=== PATIENT | female | born 1930 | race Caucasian/White ===

== ENCOUNTER → 2016-11-12 | Outpatient (CLI) | payer OTHER, MEDICARE | LOC: LAB 09:41 | PROVIDERS: ATTEND Internal Medicine | DX: I48.91 Unspecified atrial fibrillation (principal) | CPT/HCPCS: 36415; 85610 ==

== ENCOUNTER → 2016-11-26 | Outpatient (CLI) | payer OTHER, MEDICARE | LOC: LAB 08:43 | PROVIDERS: ATTEND Internal Medicine | DX: I25.10 Atherosclerotic heart disease of native coronary artery without angina pectoris (principal) | CPT/HCPCS: 36415; 85610 ==

== ENCOUNTER → 2016-12-10 | Outpatient (CLI) | payer OTHER, MEDICARE | LOC: MMPC 09:00 | DX: R04.0 Epistaxis (principal) | CPT/HCPCS: 30901 ×2; G0463 ==

== ENCOUNTER → 2016-12-16 | Outpatient (CLI) | payer OTHER, MEDICARE ==
[2016-12-16 12:51] LABS: BASOPHILS # (AUTO) 0.03 10*3/UL; BASOPHILS % (AUTO) 0.3 % (0-1); HEMATOCRIT 46.5 % (37.0-47.0); LYMPHOCYTES # (AUTO) 0.74 10*3/uL; MEAN CORPUSCULAR HEMOGLOBIN 29.9 PG (27-31); MEAN CORPUSCULAR HGB CONC 32.3 g/dL (33-37); MEAN CORPUSCULAR VOLUME 92.6 FL (81-99); MEAN PLATELET VOLUME 10.2 FL (7.4-12.2); MONOCYTES # (AUTO) 0.64 10*3/UL (0.3-0.8); MONOCYTES % (AUTO) 6.5 % (5-15); NEUTROPHILS # (AUTO) 8.39 10*3/UL; NEUTROPHILS % (AUTO) 84.5 % (50-80); RED BLOOD COUNT 5.02 10^6/uL (4.20-5.40)
[2016-12-16 12:55] LABS: PLATELET MORPHOLOGY COMMENT NORMAL MORPHOLOGY (NORM); RBC MORPHOLOGY COMMENT NORMAL MORPHOLOGY (NORM); WBC MORPHOLOGY COMMENT NORMAL MORPHOLOGY (NORM)
[2016-12-16 13:13] LABS: BLOOD UREA NITROGEN 28 mg/dL (7-22); CALCIUM 9.2 mg/dL (8.7-10.7); CHOL/HDL RATIO 2.67 RATIO (0-4.0); HDL CHOLESTEROL 62 mg/dL (40-150); SERUM ALBUMIN 3.9 g/dL (3.5-4.8); SERUM CHOLESTEROL 166 mg/dL (120-200)
[2016-12-16 13:32] LABS: BILIRUBIN,URINE NEGATIVE (NEG); CLARITY,URINE CLEAR (CLEAR); COLOR,URINE YELLOW; GLUCOSE, URINE (UA) NEGATIVE (NEG); NITRATE,URINE NEGATIVE (NEG); OCCULT BLOOD,URINE NEGATIVE (NEG); PH,URINE 6.5 (5.0-8.5); PROTEIN,URINE NEGATIVE (NEG); URINE SAMPLE TYPE VOIDED SPECIMEN; UROBILINOGEN,URINE 0.2 mg/dL (0.2)
[2016-12-16 13:33] LABS: BACTERIA,URINE MANY; RBC,URINE 0-1 /hpf; SQUAMOUS EPITHELIAL CELL,UR RARE; WBC,URINE 0-2
== END ==
LOC: MOB LAB 11:41
DX: N18.4 Chronic kidney disease, stage 4 (severe) (principal); R58 Hemorrhage, not elsewhere classified; I66.9 Occlusion and stenosis of unspecified cerebral artery; E55.9 Vitamin D deficiency, unspecified; I48.91 Unspecified atrial fibrillation
CPT/HCPCS: 36415; 80053; 80061; 81001; 82306; 84443; 85025

== ENCOUNTER → 2016-12-30 | Outpatient (CLI) | payer OTHER, MEDICARE | LOC: MMPC 09:00 | PROVIDERS: ATTEND Physician Assistant Medical | DX: S81.811A Laceration without foreign body, right lower leg, initial encounter (principal); W22.8XXA Striking against or struck by other objects, initial encounter | CPT/HCPCS: 99213; G0463 ==

== ENCOUNTER 2017-01-03 15:00 | Emergency (ER) | payer OTHER, MEDICARE ==
[2017-01-03] MEDS ORDERED: DIPH,PERTUSS,TET(ADACEL) VAC/PF 0.5 ML (Tdap) IM ONE (15:53)
[2017-01-03 17:25] VITALS: RESP 14; TEMP 97.7
--- NOTE | 2017-01-04 00:26 | PDOC ---
Upper Ext Injury HPI - General Chief Complaint: Integumentary Stated Complaint: SKIN TEAR ON LEFT FOREARM FROM DOG Date Seen by Provider: 01/03/17 Time Seen by Provider: 15:10 Source: POSITIVE: Patient, Other (Son-in-law) Exam Limitations: POSITIVE: No limitations Nurse's Notes Reviewed & Considered: Yes - History of Present Illness Initial Comments: The patient is an 86-year-old female. She was riding in a vehicle being driven by her son-in-law. She had her small dog with her in the front seat. The dog accidentally scratched the dorsum of the patient's left proximal forearm and the patient sustained a V-shaped skin tear here. Patient has a history of polymyalgia rheumatica and has been on prednisone for several years, which has caused her skin to be thin and friable. She denies any other injuries. No sensory, motor or vascular deficits. Have you received a tetanus shot in the past 10 years?: Unknown Body Location Affected: REPORTS: Upper Extremity (L) Timing: REPORTS: Abrupt Duration: 1/2 hour Severity: Moderate Quality: REPORTS: "Pain" (Mild discomfort at site of injury) Context of Injury: REPORTS: Incision (Skin tear) Modifying Factors: DENIES: Nothing Exacerbates, Walking, Movement, Rest, Ice, Nothing Relieves, Other Associated Symptoms: REPORTS: Arm (L) (Skin tear left forearm). DENIES: Arm (R) , Tingling Distally, Numbness Distally, Loss of Feeling, Loss of Power Any Prior Injuries Related to Current Complaint?: No - Patient Home Medications Home Medications: Home Medications Prednisone 1 tab PO QD #30 tab 12/22/14 Aspirin [Aspir 81] 81 mg PO DAILY tab 12/10/16 Fluticasone Propionate [Flonase Allergy Relief] 1 spr BIJAN QD #1 spr 12/10/16 Gabapentin 2 cap PO QHS #60 cap 12/10/16 Metoprolol Tartrate [Lopressor] 0.5 tab PO BID #30 tab 12/10/16 Ranitidine HCl [Zantac] 2 tab PO QHS #60 tab 12/10/16 Sennosides [Senna] 2 tab PO QHS #60 tab 12/10/16 Cholecalciferol (Vitamin D3) [Vitamin D3] 1 tab PO QD #30 tab 12/16/16 Clopidogrel Bisulfate [Plavix] 1 tab PO QD #30 tab 12/16/16 Cyanocobalamin (Vitamin B-12) [Vitamin B-12] 1 tab PO QD #30 tab 12/16/16 Furosemide 1 tab PO QD #30 tab 12/16/16 Mirtazapine 1 tab PO QHS #30 tab 12/16/16 Multivitamin [Daily [place]] 1 tab PO QD #30 tab 12/16/16 [place]-3 Fatty Acids/Fish Oil [[place] 3 1,000 Mg Softgel] 1 cap PO BID #60 cap Vit C/Vit E/Lutein/Min/[place]-3 [Ocuvite Softgel] 1 cap PO QD #30 cap 12/16/16 - Patient Allergies Allergies/Adverse Reactions: Allergies Allergy/AdvReac Type Severity Reaction Status Date / Time clindamycin Allergy Intermediate diarrhea Verified 01/03/17 16:02 and vomiting Penicillins Allergy Mild rash Verified 01/03/17 16:02 Sulfa (Sulfonamide Allergy Mild rash Verified 01/03/17 16:02 Antibiotics) alendronate sodium Allergy NOT Verified 01/03/17 16:02 APPLICABLE bupropion Allergy NOT Verified 01/03/17 16:02 APPLICABLE calcitriol Allergy NOT Verified 01/03/17 16:02 APPLICABLE fentanyl Allergy NOT Verified 01/03/17 16:02 APPLICABLE gemfibrozil Allergy NOT Verified 01/03/17 16:02 APPLICABLE loratadine Allergy NOT Verified 01/03/17 16:02 APPLICABLE methocarbamol Allergy NOT Verified 01/03/17 16:02 APPLICABLE sertraline Allergy NOT Verified 01/03/17 16:02 APPLICABLE simvastatin Allergy NOT Verified 01/03/17 16:02 APPLICABLE Past Medical History - heen HEENT History: Macular Degeneration, Cataracts, Other (please comment) Additional HEENT History: CATARACT REMOVAL BILAT Cardiovascular History: Hypertension, Arrhythmia, Pacemaker, Other (please comment) Additional Cardiovasular History: A FIB/FLUTTER, MITRAL VALVE INSUFFICIENCY WITH REPAIR Respiratory History: Denies History Gastrointestinal History: GERD Genitourinary History: Denies History Endocrine History: Denies History Musculoskeletal History: Arthritis, Osteoporosis, Other (please comment) Prosthesis or Implant: Yes (PACEMAKER, RIGHT HIP REPLACEMENT HARDWARE) Additional Musculoskeletal History: MYALGIAS Neurological History: Other (please comment) Additional Neurological History: CHRONIC 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 Blood Disorders: Denies History Psychiatric History: Denies History History of Sexually Transmitted Diseases: No Female Reproductive History: Other (please comment) Additional Female Reproductive History: TUBAL LIGATION Cancer History: Skin, Other (please comment) In Past Year Been Physically Harmed or Verbally Threatened: No (PER PATIENT) History of MDRO: No History of Other Communicable Diseases: No Tobacco Use: Never Smoker Alcohol Use: Occasionally Type of alcohol normally used: Beer Substance Use Type: None Previous Surgical History: Yes Type / Date of Surgery: TUBAL LIGATION, RIGHT HIP REPLACEMENT, MITRAL VALVE REPAIR, PACEMAKER LEFT CHEST, BILATERAL CATARACT REMOVAL, BILATERAL ROTATOR CUFF REPAIRS Anesthesia Reactions: No Malignant Hyperthermia: No Family History of Malignant Hyperthermia: No Significant Family History: No pertinent family hx Past Medical History Reviewed: Reviewed - No Changes ROS - Limitations ROS Limitations: No Limitations Constitution: REPORTS: Denies Symptoms Cardiovascular: REPORTS: Denies Cardiac Symptoms Respiratory: REPORTS: Denies Resp Symptoms Neurological: REPORTS: Denies Neuro Symptoms Gastrointestinal: REPORTS: Denies GI Symptoms Endocrine: REPORTS: Denies Symptoms Musculoskeletal: REPORTS: Denies MS Symptoms Genitourinary: REPORTS: Denies Symptoms Eyes: REPORTS: Denies Symptoms ENT: REPORTS: Denies Symptoms Skin: REPORTS: Other (Skin tear, dorsum of proximal proximal portion of left forearm) Lympathic: REPORTS: Denies Lympathic Symptoms Immunologic: POSITIVE: Denies Symptoms Psychiatric: POSITIVE: Denies Psych Symptoms Upper Ext Injury Exam - General Appearance General Appearance: POSITIVE: Alert, Cooperative, No Acute Distress. NEGATIVE: No Evidence of Trauma (Skin tear left forearm; see diagram) - Extremities Upper Extremity: POSITIVE: Normal Color, Normal ROM, Normal Temperature, Soft Tissue Tenderness, See Diagram. NEGATIVE: Bony Tenderness, Swelling, Ecchymosis , Deformity, Skin Intact (Skin tear left forearm as above; see diagram), Erythema, Limited ROM, Pulse Deficit, Snuff Box Position Tender, Axial Thumb Load Pain Neurovascular/Tendon: POSITIVE: Sensation Normal, Motor Normal, No Vascular Compromise Skin: POSITIVE: See Diagram - Respiratory / CVS Respiratory / CVS: POSITIVE: Chest Non Tender, No Ecchymosis, Breath Sounds Normal, No Respiratory Distress, Heart Sounds Normal, Regular Rate/Rhythm Peripheral Pulses: Radial (R): 2+, Radial (L): 2+ Procedures - Additional Procedures Additional Procedures: Other (Wound was gently cleansed with normal saline. The margins of the skin tear were teased together with moistened Q-tips and then stabilized with Steri-Strips.) Images - Upper Extremities Upper Extremities: 1 - 5 cm V-shaped skin tear. Upper Ext Injury Progress - Patient's Progress Pain Medication Addressed: POSITIVE: Yes (Recommended Tylenol) School/Work Release Addressed: POSITIVE: Not Applicable Re-Examine Time: 15:47 Re-Examine Comment: After cleansing with normal saline, the margins of the skin tear were approximated by teasing the margins together with moistened Q-tips. The margins were then stabilized with quarter inch and half inch Steri-Strips. Sterile dressing was then placed. Status: POSITIVE: Improved, Re-Examined - Consult Counseled: POSITIVE: Patient, Family (Son-in-law), RE: DX, RE: Need for F/U Patient Care Time - Estimated PCT Patient Care Time (In Minutes): 30 Vital Signs - VS Reviewed Vital Signs Reviewed: Yes Discharge Clinical Impression: Skin tear Discharge Disposition: Discharged to Home Condition: Stable Patient Instructions Given at Discharge: Skin Tear (ED) Additional Instructions: Keep Steri-Strips on for at least 10 days. Change dressing daily. Return any time at first sign of infection, or if condition worsens in any way. Follow Up With: ERIC QUICK [Primary Care Provider] - (Instructions as above. Return anytime at first sign of infection, or if condition worsens in any way. Follow-up with your primary care provider.)
== END 2017-01-03 16:15 | disposition home or self-care (01) ==
LOC: ER 15:00
DX: S51.812A Laceration without foreign body of left forearm, initial encounter (principal); I48.91 Unspecified atrial fibrillation; I10 Essential (primary) hypertension; Z95.0 Presence of cardiac pacemaker; W54.1XXA Struck by dog, initial encounter
CPT/HCPCS: 96372; 99282

== ENCOUNTER 2017-01-10 15:22 | Emergency (ER) | payer OTHER, MEDICARE ==
[2017-01-10] MEDS ORDERED: LET SOLUTION 40MG/0.5MG/5MG/ML - 3 ML TOPICAL ONE (15:28)
--- NOTE | 2017-01-10 15:33 | PDOC ---
Skin Rash/Insect/Abscess HPI - General Chief Complaint: Integumentary Stated Complaint: skin tear Date Seen by Provider: 01/10/17 Time Seen by Provider: 15:28 Source: POSITIVE: Patient, Other (Her children) Exam Limitations: POSITIVE: No limitations Nurse's Notes Reviewed & Considered: Yes - History of Present Illness Initial Comments: Patient was in her normal state of health when she hit her right forearm on the handle of her walker. This resulted in an evulsion laceration to the scan of the posterior lateral right forearm. She denies any other symptoms. Have you received a tetanus shot in the past 10 years?: Unknown Body Location Affected: REPORTS: Upper Extremity (R) Timing: REPORTS: Abrupt Duration: 1/2 hour Severity: Mild Quality: REPORTS: "Pain" Identified Causes: REPORTS: Yes When Exposed: REPORTS: Just Prior to Sx Onset Where Exposed: REPORTS: Home Suspected Etiology: REPORTS: Other (Evulsion laceration from hitting her arm on the handle of her walker.) Similar Symptoms Previously: Yes (injury to the ipsilateral side from similar circumstances a week ago.) Recent Care Received: REPORTS: Denies Any Prior Injuries Related to Current Complaint?: No - Patient Home Medications Home Medications: Home Medications Prednisone 1 tab PO QD #30 tab 12/22/14 Aspirin [Aspir 81] 81 mg PO DAILY tab 12/10/16 Fluticasone Propionate [Flonase Allergy Relief] 1 spr BIJAN QD PRN #1 spr Gabapentin 2 cap PO QHS #60 cap 12/10/16 Metoprolol Tartrate [Lopressor] 0.5 tab PO BID #30 tab 12/10/16 Ranitidine HCl [Zantac] 2 tab PO QHS #60 tab 12/10/16 Sennosides [Senna] 2 tab PO QHS #60 tab 12/10/16 Cholecalciferol (Vitamin D3) [Vitamin D3] 1 tab PO QD #30 tab 12/16/16 Clopidogrel Bisulfate [Plavix] 1 tab PO QD #30 tab 12/16/16 Cyanocobalamin (Vitamin B-12) [Vitamin B-12] 1 tab PO QD #30 tab 12/16/16 Furosemide 1 tab PO QD #30 tab 12/16/16 Mirtazapine 1 tab PO QHS #30 tab 12/16/16 Multivitamin [Daily [place]] 1 tab PO QD #30 tab 12/16/16 [place]-3 Fatty Acids/Fish Oil [[place] 3 1,000 Mg Softgel] 1 cap PO BID #60 cap Vit C/Vit E/Lutein/Min/[place]-3 [Ocuvite Softgel] 1 cap PO QD #30 cap 12/16/16 - Patient Allergies Allergies/Adverse Reactions: Allergies Allergy/AdvReac Type Severity Reaction Status Date / Time clindamycin Allergy Intermediate diarrhea Verified 01/10/17 15:28 and vomiting Penicillins Allergy Mild rash Verified 01/10/17 15:28 Sulfa (Sulfonamide Allergy Mild rash Verified 01/10/17 15:28 Antibiotics) alendronate sodium Allergy NOT Verified 01/10/17 15:28 APPLICABLE bupropion Allergy NOT Verified 01/10/17 15:28 APPLICABLE calcitriol Allergy NOT Verified 01/10/17 15:28 APPLICABLE fentanyl Allergy NOT Verified 01/10/17 15:28 APPLICABLE gemfibrozil Allergy NOT Verified 01/10/17 15:28 APPLICABLE loratadine Allergy NOT Verified 01/10/17 15:28 APPLICABLE methocarbamol Allergy NOT Verified 01/10/17 15:28 APPLICABLE sertraline Allergy NOT Verified 01/03/17 16:02 APPLICABLE simvastatin Allergy NOT Verified 01/03/17 16:02 APPLICABLE Past Medical History - heen HEENT History: Macular Degeneration, Cataracts, Other (please comment) Additional HEENT History: CATARACT REMOVAL BILAT Cardiovascular History: Hypertension, Arrhythmia, Pacemaker, Other (please comment) Additional Cardiovasular History: A FIB/FLUTTER, MITRAL VALVE INSUFFICIENCY WITH REPAIR Respiratory History: Denies History Gastrointestinal History: GERD Genitourinary History: Denies History Endocrine History: Denies History Musculoskeletal History: Arthritis, Osteoporosis, Other (please comment) Prosthesis or Implant: Yes (PACEMAKER, RIGHT HIP REPLACEMENT HARDWARE) Additional Musculoskeletal History: MYALGIAS Neurological History: Other (please comment) Additional Neurological History: CHRONIC 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 Blood Disorders: Denies History Psychiatric History: Denies History History of Sexually Transmitted Diseases: No Cancer History: Skin, Other (please comment) History of MDRO: No History of Other Communicable Diseases: No Alcohol Use: Occasionally Substance Use Type: None Previous Surgical History: Yes Type / Date of Surgery: TUBAL LIGATION, RIGHT HIP REPLACEMENT, MITRAL VALVE REPAIR, PACEMAKER LEFT CHEST, BILATERAL CATARACT REMOVAL, BILATERAL ROTATOR CUFF REPAIRS Anesthesia Reactions: No Malignant Hyperthermia: No Significant Family History: No pertinent family hx ROS - Limitations ROS Limitations: No Limitations Constitution: REPORTS: Denies Symptoms Cardiovascular: REPORTS: Denies Cardiac Symptoms Respiratory: REPORTS: Denies Resp Symptoms Neurological: REPORTS: Denies Neuro Symptoms Gastrointestinal: REPORTS: Denies GI Symptoms Endocrine: REPORTS: Denies Symptoms Musculoskeletal: REPORTS: Denies MS Symptoms Genitourinary: REPORTS: Denies Symptoms Eyes: REPORTS: Denies Symptoms ENT: REPORTS: Denies Symptoms Skin: REPORTS: Other (Evulsion laceration right posterior lateral forearm) Lympathic: REPORTS: Denies Lympathic Symptoms Immunologic: POSITIVE: Denies Symptoms Psychiatric: POSITIVE: Denies Psych Symptoms Skin Rash/Insect/Abscess Exam - General Appearance General Appearance: REPORTS: Alert, Cooperative, No Acute Distress - Skin Skin: REPORTS: Warm, Dry, Normal Color, Other (Avulsion laceration posterior lateral right forearm. This measures 7 cm) Skin Location: REPORTS: Extremities (Right posterior lateral forearm) Skin Character: REPORTS: Other (thin fragile skin of old age) Skin Symptoms: REPORTS: Warmth - Extremities Extremity: Non-Tender: (All Extremities), Normal ROM: (All Extremities), Normal Inspection: (All Extremities) Procedures - Laceration/Wound Repair Did patient have a laceration repair: Yes Site of Laceration/Wound: Right posterior lateral forearm proximal Wound Length (cm): 7 Wound's Depth, Shape: Superficial Time of Suture Placement:: 15:34 Local Anesthesia Used - Indicate Amt Used in Comment: Other: Yes (LET solution) Wound Explored: Clean Wound Debrided: Minimal Wound Repaired With: Steri-strips Drain Placement: No Sterile Dressing Applied?: Yes Splint Applied?: No Sling Applied?: No Procedure Note:: After obtaining informed verbal consent, wound was anesthetized using LAT solution. Normal saline was used to irrigate the wound. This was patted dry, Mastisol and Steri-Strips applied, sterile bandage applied. Skin Rash/Abscess Progress - Patient's Progress Re-Examine Time:: 16:21 Status: POSITIVE: Improved MDM / ED Course: Patient was Evaluated. Her wound was anesthetized using L ET solution, then irrigated with normal saline, Mastisol and Steri-Strips applied. Dressing was placed over her wound and she is being discharged home in improved condition Assessment: Evulsion laceration, right posterior lateral forearm. Plan: Discharge home. - Consult Counseled: POSITIVE: Patient, Family, RE: DX, RE: Need for F/U Patient Care Time - Estimated PCT Patient Care Time (In Minutes): 15 Vital Signs - Recent Vital Signs Vital Signs: Vital Signs (Last 8 hours) Temp Pulse Resp BP Pulse Ox 01/10/17 15:23 97.3 F 85 20 146/66 96 - VS Reviewed Vital Signs Reviewed: Yes Discharge Clinical Impression: Skin tear of right forearm without complication Discharge Disposition: Discharged to Home Condition: Good Patient Instructions Given at Discharge: Skin Tear (ED)
[2017-01-10 15:45] VITALS: RESP 20; TEMP 97.3
== END 2017-01-10 16:29 | disposition home or self-care (01) ==
LOC: ER 15:22
DX: S51.811A Laceration without foreign body of right forearm, initial encounter (principal); I48.91 Unspecified atrial fibrillation; Z95.0 Presence of cardiac pacemaker; Z79.82 Long term (current) use of aspirin; W22.8XXA Striking against or struck by other objects, initial encounter
CPT/HCPCS: 99282

== ENCOUNTER → 2017-01-14 | Outpatient (CLI) | payer OTHER, MEDICARE | LOC: MMPC 11:11 | PROVIDERS: ATTEND Physician Assistant | DX: Z51.89 Encounter for other specified aftercare (principal) | CPT/HCPCS: 99212; G0463 ==

== ENCOUNTER → 2017-01-21 | Outpatient (CLI) | payer OTHER, MEDICARE | LOC: MMPC 11:11 | DX: I48.91 Unspecified atrial fibrillation (principal); N18.4 Chronic kidney disease, stage 4 (severe); E55.9 Vitamin D deficiency, unspecified; I66.9 Occlusion and stenosis of unspecified cerebral artery; K21.9 Gastro-esophageal reflux disease without esophagitis; M35.3 Polymyalgia rheumatica | CPT/HCPCS: 99212; G0463 ==

== ENCOUNTER 2017-05-17 09:06 | Inpatient (IN) ==
[2017-05-17] MEDS ORDERED: NORMAL SALINE 10 ML SYRINGE FLUSH IVP PRN (09:38)
--- NOTE | 2017-05-17 09:51 | EKG ---
[address] [address] Measurements Intervals [place] Rate: 63 P: SC: 0 QRS: 106 QRSD: 147 T: -28 QT: 442 QTc: 449 Interpretive Statements ATRIAL [id number] RIGHT BUNDLE BRANCH BLOCK T-WAVE ABNORMALITY, CONSIDER ANTERIOR AND INFERIOR ISCHEMIA No previous ECG available for comparison Electronically Signed On 05-17-17 17:55:15 MST by Robert Hogan [email or web address]
[2017-05-17 10:19] LABS: Hematocrit [HCT] 35.1 % (37.0-47.0); Hemoglobin [HGB] 11.7 g/dL (12.0-16.0); RED BLOOD COUNT 3.75 10^6/uL (4.20-5.40)
[2017-05-17 10:20] LABS: MEAN CORPUSCULAR HEMOGLOBIN 31.3 PG (27-31); MEAN CORPUSCULAR HGB CONC 33.5 g/dL (33-37); MEAN CORPUSCULAR VOLUME 94 FL (81-99); MEAN PLATELET VOLUME 7.6 FL (7.4-12.2)
[2017-05-17 10:21] LABS: BASOPHILS # (AUTO) 0.04 10*3/UL; BASOPHILS % (AUTO) 0.4 % (0-1); EOSINOPHILS # (AUTO) 0.33 10*3/UL; EOSINOPHILS % (AUTO) 3.7 % (0-8); LYMPHOCYTES # (AUTO) 1.09 10*3/uL; MONOCYTES # (AUTO) 0.67 10*3/UL (0.3-0.8); MONOCYTES % (AUTO) 7.6 % (5-15); NEUTROPHILS # (AUTO) 6.75 10*3/UL; PLATELET MORPHOLOGY COMMENT NORMAL MORPHOLOGY (NORM); RBC MORPHOLOGY COMMENT NORMAL MORPHOLOGY (NORM); WBC MORPHOLOGY COMMENT NORMAL MORPHOLOGY (NORM)
[2017-05-17 10:26] LABS: BLOOD UREA NITROGEN 30 mg/dL (7-22); BUN/CREATININE RATIO 21.42 (6-20); SERUM ALBUMIN 3.2 g/dL (3.5-4.8)
--- NOTE | 2017-05-17 11:13 | CONSULT ---
Consult Note - Consult Consult Date: 05/17/17 Reason for Consult: PreOp Consulation : General Surgery Requesting Physician: Dr. Campuzano Primary Care Provider: NONE NONE - History of Present Illness History of Present Illness: This is a-year-old female who started having hematoma in the lower extremity on May 08. Patient is taking Plavix and aspirin a day. Apparently she has atrial fibrillation and had a I device to catch blood clots coming out of the heart place. Patient has been on warfarin up to approximately 2 months ago. Patient states that she started having a hematoma after bumping her leg had a handicap bathroom and a motel. She's been getting this treated by physical therapy. Past Medical History Tobacco Use: Never Smoker In the Past 12 Months, Have Used or Abuse Any of the Following Substance: None Medication / Allergies Home Medications: Home Medications Medication Instructions Recorded Confirmed Type Prednisone 1 tab PO QD #30 tab 12/22/14 05/17/17 History Aspirin [Aspir 81] 81 mg PO DAILY tab 12/10/16 05/17/17 History Fluticasone Propionate [Flonase 1 spr BIJAN QD PRN #1 spr 12/10/16 05/17/17 History Allergy Relief] Ranitidine HCl [Zantac] 2 tab PO QHS #60 tab 12/10/16 01/10/17 History Sennosides [Senna] 2 tab PO QHS #60 tab 12/10/16 05/17/17 History Cholecalciferol (Vitamin D3) 1 tab PO QD #30 tab 12/16/16 05/17/17 Rx [Vitamin D3] Clopidogrel Bisulfate [Plavix] 1 tab PO QD #30 tab 12/16/16 05/17/17 Rx Cyanocobalamin (Vitamin B-12) 1 tab PO QD #30 tab 12/16/16 05/17/17 Rx [Vitamin B-12] Furosemide 1 tab PO QD #30 tab 12/16/16 05/17/17 Rx Mirtazapine 1 tab PO QHS #30 tab 12/16/16 01/10/17 Clinic Multivitamin [Daily [place]] 1 tab PO QD #30 tab 12/16/16 05/17/17 Rx [place]-3 Fatty Acids/Fish Oil 1 cap PO BID #60 cap 12/16/16 05/17/17 Rx [[place] 3 1,000 Mg Softgel] Vit C/Vit E/Lutein/Min/[place]-3 1 cap PO QD #30 cap 12/16/16 05/17/17 Rx [Ocuvite Softgel] Mirtazapine 1 tab PO QHS #90 tab 02/22/17 05/17/17 Clinic Ranitidine HCl [Zantac] 2 tab PO QHS #180 tab 02/22/17 05/17/17 Clinic gabapentin 100 mg capsule 100 mg PO QHS #60 cap 03/10/17 05/17/17 Rx metoprolol tartrate 25 mg tablet 12.5 mg PO BID #30 tab 05/05/17 05/17/17 Rx Allergies/Adverse Reactions: Allergies 3 Allergy/AdvReac Type Severity Reaction Status Date / Time clindamycin Allergy Intermediate diarrhea Verified 05/17/17 09:21 and vomiting Penicillins Allergy Mild rash Verified 05/17/17 09:21 Sulfa (Sulfonamide Allergy Mild rash Verified 05/17/17 09:21 Antibiotics) alendronate sodium Allergy NOT Verified 05/17/17 09:21 APPLICABLE bupropion Allergy NOT Verified 05/17/17 09:21 APPLICABLE calcitriol Allergy NOT Verified 05/17/17 09:21 APPLICABLE fentanyl Allergy NOT Verified 05/17/17 09:21 APPLICABLE gemfibrozil Allergy NOT Verified 05/17/17 09:21 APPLICABLE loratadine Allergy NOT Verified 05/17/17 09:21 APPLICABLE methocarbamol Allergy NOT Verified 05/17/17 09:21 APPLICABLE sertraline Allergy NOT Verified 05/17/17 09:21 APPLICABLE simvastatin Allergy NOT Verified 05/17/17 09:21 APPLICABLE Results - Labs CBC and BMP: 05/17/17 10:07 05/17/17 10:07 Exam - Vitals Vital Signs: Vital Signs Temperature 97.2 F Pulse Rate [Pulse Oximeter 75 Left] Respiratory Rate 16 Blood Pressure [Left Arm] 126/63 Pulse Ox 95 Oxygen Delivery Method Room Air Height 5 ft 2 in Weight 100 lb - Extremities Additional Extremities Exam Details: Patient has ecchymosis from her knee down to her ankle on the left side she has a large posterior calf hematoma that is proximally 20 cm in greatest diameter. This is raising the skin from the subcutaneous tissue. There is blottable fluid underneath the skin. I cannot tell whether the skin is necrosis to are not secondary to the bruising.. Assessment and Plan - Patient Problems (1) Hematoma Current Visit: No Status: Acute Code(s): T14.8XXA - Other injury of unspecified body region, initial encounter - Assessment / Plan Additional Assessment/Plan Details: I think the patient needs to have evacuation of this hematoma. There is significant risk of having skin necrosis. If the whole area necrosis patient may need skin grafts. I do not think we can wait the full 7 days for patient be off the Plavix. Risk and benefits of procedure were explained to the family they understand this.
[2017-05-17] MEDS ORDERED: Sodium Chloride 0.9% 1,000 ML PRIMARY IV SCH (11:51)
[2017-05-17] MEDS ORDERED: DOCUSATE 100 MG CAPSULE PO PRN (11:51)
[2017-05-17] MEDS ORDERED: LIDOCAINE W/ SODIUM BICARB 0.5 ML SYR SUBD PRN (11:51)
[2017-05-17] MEDS ORDERED: CALCIUM CARBONATE 500 MG (TUMS) CHEWABLE TABLET PO PRN (11:51)
[2017-05-17] MEDS ORDERED: Lactated Ringers 1,000 ML PRIMARY IV ONE (12:06)
[2017-05-17] MEDS ORDERED: PROPOFOL 10 MG/1 ML (200 MG/20 ML) VIAL IV ONE (13:09)
[2017-05-17] MEDS ORDERED: MIDAZOLAM 5 MG/1 ML ONE (13:09)
[2017-05-17] MEDS ORDERED: Sodium Chloride 0.9% vial 10 ML ONE (13:11)
[2017-05-17] MEDS ORDERED: LIDOCAINE HCL 1%/EPI 1:100,000 - 20 ML VIAL ONE (13:13)
--- NOTE | 2017-05-17 14:18 | CRNA.PROGR ---
Anesthesia Time - - Start date: 05/17/17 End date: 05/17/17 - Procedure/Recovery Time Anesthesia : Time In: 13:13 Anesthesia : Time Out: 13:59 Anesthesia : Total Time: 46 - Total Anesthesia Time Total Anesthesia Time (minutes): 46 - Other Weight: 45.359 kg Height: 5 ft 2 in Body Mass Index (BMI): 18.3 Physical Status: P3 (Age 86, Afib,) Anesthesia Type: MAC
--- NOTE | 2017-05-17 14:19 | CRNA.PROGR ---
Post Anesthesia Phase II - Post Anesthesia Phase II Patient Stable and Discharged To: Phase II Care Assumed By Surgeon: Oneil Logan MD Temperature: 98.9 F Pulse Rate: 63 Respiratory Rate: 20 Blood Pressure: 148/66 Pulse Ox: 98 Total Sasha Score at Discharge: 9 Post Anesthesia Discharge Criteria Met: Yes
[2017-05-17] MEDS: ACETAMINOPHEN 325 MG TABLET PO PRN ×2 (15:00→23:00)
--- NOTE | 2017-05-17 15:01 | GEN.OPNOTE ---
Operative Note Surgery Date: 05/17/17 Preoperative Diagnosis: Hematoma of the right posterior leg Postoperative Diagnosis: Large hematoma measuring 16 x 8 cm of the posterior aspect of the right lower leg with skin necrosis Procedure: Excision of necrotic skin 16 x 8 cm and evacuation of a hematoma Surgeon: Andrés Logan MD Anesthesia Provider: Cookie Blair CRNA Anesthesia Type: MAC Estimated Blood Loss (mL): 0 Fluids: LR please see anesthesia notes Indications: Patient is a large hematoma the posterior aspect of the right leg. The area of involvement measures 16 x 8 cm Findings: Skin necrosis 16 x 8 cm Operative Summary: Patient is brought in operative room. Placed in posterior position given IV sedation. Patient was then positioned left lateral decubitus. Timeout was done per protocol. Prepped draped sterile fashion. Patient had no airway then injected local anesthetic surges debridement of necrotic tissue this measures 16 x 8 cm I evacuated the hematoma underneath it. I could not tell whether this is superficial are full-thickness injury. This will be determined at a later date. The wound was covered with moistened gauze Curlex and then call band. Patient Problems - Patient Problem List (1) Hematoma Current Visit: No Status: Acute Code(s): T14.8XXA - Other injury of unspecified body region, initial encounter Category: Medical Procedure Codes - Surgical Procedures Secondary Surgical Procedure: Other CPT Code(s) (79823)
--- NOTE | 2017-05-17 17:07 | PDOC ---
HPI - History of Present Illness Date of Service: 05/17/17 Time of Service: 17:00 Chief Complaint: Hematomas and legs, right calf in particular large History of Present Illness: This a very pleasant 86-year-old female with underlying atrial fibrillation, history of TIAs, hypertension, and friable easy bruising scan with multiple episodes of hematomas on Coumadin. Back in September of this year, the patient had an atrial appendage device placed to help prevent atrial clots in the setting of her atrial fibrillation. This was to get her off of Coumadin to hopefully help prevent hematomas. Unfortunately as part of the device regimen, the patient had to remain on Plavix for about 3 months. Her bruises and she settled down after being placed on Plavix but recently have gotten significantly worse. She has had multiple hematomas that required evacuation and skin grafting per the patient's daughter I am told. She's not had any of those problems and she's been here but over the last 3 days she's developed significant hematomas and it started leaking out of the right calf. The patient denies having any significant pain with this but she came in for evaluation and it appeared that it could be significantly damaging underlying tissues. Dr. Logan was called and he took the patient to the operating room to evacuate the hematoma. It sounds like the hematoma was fairly large in my discussion with surgery. The patient was actually only specific on Plavix for 3 months but apparently her cardiology appointment got delayed so she remained on it a little longer than what was expected. She is having some pain but it is been controlled thus far with Tylenol. She is also on an aspirin. She is not had any prior cardiac events. Incidentally, she is also on prednisone and is tapered from 20 mg sent to 5 mg daily for polymyalgia rheumatica. She has not been hypotensive in the setting of surgery today. She was in danger of skin necrosis which is why she went to the operating room today. The patient stated to me that she felt overall that her hematoma started because her Yorkie was rubbing up against her legs. Past Medical History Medical History: 1. Polymyalgia rheumatica. 2. Atrial fibrillation. 3. Multiple hematomas on Coumadin therapy and now on Plavix therapy. These have also been treated by physical therapy in the past. 4. Hypertension Surgical History: 1. Multiple skin grafts related to hematomas. 2. Watchman procedure with atrial appendage device. 3. Pacemaker placement Pertinent Family History: Mother and father both passed on in their 90s related to heart disease and stroke issues Past Social History: Does not smoke or drink. Lives with her daughter and son- in-law here in [place], [place]. Had 3 children. Tobacco Use: Never Smoker In the Past 12 Months, Have Used or Abuse Any of the Following Substance: None Alcohol Use: None Medication / Allergies Home Medications: Home Medications Medication Instructions Recorded Confirmed Type Prednisone 1 tab PO QD #30 tab 12/22/14 05/17/17 History Aspirin [Aspir 81] 81 mg PO DAILY tab 12/10/16 05/17/17 History Fluticasone Propionate [Flonase 1 spr BIJAN QD PRN #1 spr 12/10/16 05/17/17 History Allergy Relief] Ranitidine HCl [Zantac] 2 tab PO QHS #60 tab 12/10/16 01/10/17 History Sennosides [Senna] 2 tab PO QHS #60 tab 12/10/16 05/17/17 History Cholecalciferol (Vitamin D3) 1 tab PO QD #30 tab 12/16/16 05/17/17 Rx [Vitamin D3] Clopidogrel Bisulfate [Plavix] 1 tab PO QD #30 tab 12/16/16 05/17/17 Rx Cyanocobalamin (Vitamin B-12) 1 tab PO QD #30 tab 12/16/16 05/17/17 Rx [Vitamin B-12] Furosemide 1 tab PO QD #30 tab 12/16/16 05/17/17 Rx Mirtazapine 1 tab PO QHS #30 tab 12/16/16 01/10/17 Clinic Multivitamin [Daily Lawrence] 1 tab PO QD #30 tab 12/16/16 05/17/17 Rx Cannon-3 Fatty Acids/Fish Oil 1 cap PO BID #60 cap 12/16/16 05/17/17 Rx [Cannon 3 1,000 Mg Softgel] Vit C/Vit E/Lutein/Min/Cannon-3 1 cap PO QD #30 cap 12/16/16 05/17/17 Rx [Ocuvite Softgel] Mirtazapine 1 tab PO QHS #90 tab 02/22/17 05/17/17 Clinic Ranitidine HCl [Zantac] 2 tab PO QHS #180 tab 02/22/17 05/17/17 Clinic gabapentin 100 mg capsule 100 mg PO QHS #60 cap 03/10/17 05/17/17 Rx metoprolol tartrate 25 mg tablet 12.5 mg PO BID #30 tab 05/05/17 05/17/17 Rx Allergies/Adverse Reactions: Allergies 3 Allergy/AdvReac Type Severity Reaction Status Date / Time cephalexin [From Keflex] Allergy Intermediate ITCHING Verified 05/17/17 11:43 clindamycin Allergy Intermediate diarrhea Verified 05/17/17 09:21 and vomiting Penicillins Allergy Mild rash Verified 05/17/17 09:21 Sulfa (Sulfonamide Allergy Mild rash Verified 05/17/17 09:21 Antibiotics) alendronate sodium Allergy NOT Verified 05/17/17 09:21 APPLICABLE bupropion Allergy NOT Verified 05/17/17 09:21 APPLICABLE calcitriol Allergy NOT Verified 05/17/17 09:21 APPLICABLE fentanyl Allergy NOT Verified 05/17/17 09:21 APPLICABLE gemfibrozil Allergy NOT Verified 05/17/17 09:21 APPLICABLE loratadine Allergy NOT Verified 05/17/17 09:21 APPLICABLE methocarbamol Allergy NOT Verified 05/17/17 09:21 APPLICABLE sertraline Allergy NOT Verified 05/17/17 09:21 APPLICABLE simvastatin Allergy NOT Verified 05/17/17 09:21 APPLICABLE Review of Systems - Review of Systems All Systems: Reviewed & No Additional Complaints Except as Stated (I did a 12 point review systems and it was negative other than that discussed in the history of present illness and that noted below.) - Constitutional Constitutional: REPORTS: Weight Loss (About 25 pounds weight loss over the past year. Poor appetite.) - Cardiovascular Cardiovascular: REPORTS: Negative System Review - Gastrointestinal Gastrointestinal / Abdominal: REPORTS: Negative System Review - Genitourinary Genitourinary: REPORTS: Negative System Review - Hematlogic / Lymphatic Hematologic / Lymphatic: REPORTS: Easy Bleeding/Bruising (Multiple hematomas that have required surgery and then subsequent skin grafts in the past.) - Neurological Neurologic: REPORTS: Other (History of 2 prior TIAs, no symptoms today.) Exam - Vitals Vital Signs: Vital Signs Temperature 98.4 F Temperature Source Temporal Artery Scan Pulse Rate [Pulse Oximeter 59 Left] Pulse Rate 63 Respiratory Rate 16 Blood Pressure [Left Arm] 124/49 Blood Pressure 148/66 Pulse Ox 95 Oxygen Flow Rate RA Oxygen Delivery Method Room Air Height 5 ft 2 in Weight 100 lb - General General Appearance: No Acute Distress, Cooperative - Head Head Exam: Normal Inspection, Normocephalic, Atraumatic - Eye Eye Exam: POSITIVE: No Scleral Icterus - ENT ENT Exam: POSITIVE: Mucous Membranes Moist - Neck Neck Exam: Normal Inspection, No Tenderness, No Lymphadenopathy, No Thyromegaly - Respiratory Respiratory Exam: POSITIVE: Clear to Auscultation - Bilaterally, Breathing Non Labored, Normal to Percussion and Palpation - Cardiovascular Cardiovascular Exam: POSITIVE: RRR, No Murmur, No Clicks, No Gallops, No Rubs, No JVD - GI/Abdominal GI/Abdominal Exam: POSITIVE: Normal Bowel Sounds, Non Tender, Non Distended, Soft - Rectal Rectal Exam: POSITIVE: Deferred - External Exam: POSITIVE: Deferred Exam: POSITIVE: Deferred - Extremities Additional Extremities Exam Details: Hematomas essentially extending proximally from the knees down to the ankles bilaterally, the right side has a dressing in place with some bleeding, but the dressing is intact. - Back Back Exam: POSITIVE: Normal Inspection, No CVA Tenderness - Neurological Neurological Exam: POSITIVE: Alert, Oriented x 3, No Facial Droop, Speech Intact / Clear, Moves All Extremities Equally - Psychiatric Psychiatric Exam: POSITIVE: Normal Affect, Normal Mood - Integumentary Additional Integumentary Exam Details: Several wounds throughout body. Mostly concentrated to extremities. Results - Labs CBC and BMP: 05/17/17 10:07 05/17/17 10:07 Additional Lab Results: 05/17/17 05/17/17 10:07 10:07 PT 10.5 INR 0.99 APTT 24.5 Calcium 9.2 Total Bilirubin 0.7 AST 37 ALT 27 Alkaline Phosphatase 55 Total Protein 5.6 L Albumin 3.2 L Globulin 2.4 L - EKG Data -: EKG Interpreted by Me - EKG Data When Compared to Previous EKG(s) There Are: Previous EKG Unavailable EKG Interpretation: Other (Paced heart rhythm.) Assessment and Plan - Patient Problems (1) Atrial fibrillation Current Visit: Yes Status: Acute Code(s): I48.91 - Unspecified atrial fibrillation (2) Hypertension Current Visit: Yes Status: Acute Code(s): I10 - Essential (primary) hypertension (3) Loss of weight Current Visit: Yes Status: Acute Code(s): R63.4 - Abnormal weight loss (4) Hematoma Current Visit: No Status: Acute Code(s): T14.8XXA - Other injury of unspecified body region, initial encounter (5) Polymyalgia rheumatica Current Visit: Yes Status: Acute Code(s): M35.3 - Polymyalgia rheumatica (6) History of systemic steroid therapy Current Visit: Yes Status: Acute Code(s): Z92.241 - Personal history of systemic steroid therapy - Assessment / Plan Additional Assessment/Plan Details: Admit the patient. Surgery as per Dr. Logan, RD done, one distress. This may be using in the setting of Plavix I think we should hold Plavix and aspirin for 2-3 days and then cautiously resume aspirin for stroke prevention in the setting of her atrial fibrillation. At this point, I do not think that it is worth the risk of bleeding with hematomas needing surgical palpitations and possible skin grafts to continue Plavix therapy. It was mostly stopped about a month ago according to the patient's daughter. I will try to discuss with cardiology. PT and OT. Wound therapy with PT. No antibiotics at this time, but I did warn the family that she is at high risk of infection given the hematoma and subsequent evacuation today. I'm hoping that she will not need a skin graft to close this wound but it is still a possibility. Try to continue home medications otherwise. Check thyroid status tomorrow. Dietary evaluation for improvement in hopefully by mouth intake. Patient is full code, discussed with the patient, her daughter, and son-in-law, in depth. Patient and family agree with the plan above.
[2017-05-17] MEDS ORDERED: POLYETHYLENE GLYCOL 3350 17 GM POWDER PO ONE (18:56)
[2017-05-17] MEDS: HYDROcodone-APAP 5 MG -325 MG TABLET PO PRN (19:12)
[2017-05-17] MEDS: GABAPENTIN 100 MG CAPSULE PO SCH (20:01)
[2017-05-17] MEDS: Metoprolol TARTRATE Tab 25 MG TAB PO SCH (20:01)
[2017-05-17] MEDS: Mirtazapine Tab 15 MG TAB PO SCH (20:02)
[2017-05-17] MEDS: Senna Tab 8.6 MG TAB PO SCH (20:29)
--- NOTE | 2017-05-17 22:38 | PDOC ---
Lower Extremity Problem HPI - General Chief Complaint: Lower Extremity Problem/Injury Stated Complaint: hematoma right lower leg Date Seen by Provider: 05/17/17 Time Seen by Provider: 09:15 Source: POSITIVE: Patient, RN/MD Exam Limitations: POSITIVE: No limitations Nurse's Notes Reviewed & Considered: Yes - History of Present Illness Initial Comments: The patient is an 86-year-old female. She presents to the emergency room complaining of pain and ecchymosis to the right lower leg. She has had an enlarging hematoma to the right lower leg over the calf, and she states that when she walks she has a "sloshing" sensation. She was seen in physical therapy this morning and then referred to the emergency room for this problem. She states the onset of this problem may have been when she struck her leg on a bathtub. She has chronic trophic changes to both lower legs. She has been on prednisone "for years "for fibromyalgia and is presently on 5 mg daily. She states she has a history of atrial fibrillation and had a "clipped" to the mitral valve for mitral regurgitation in the past. She also had a "net placed in my heart to catch blood clots. Patient is on Plavix and aspirin. She states that she was on warfarin but this was discontinued by her physician in [place] 2 months ago. She states she's had 2 TIAs in the past. Body Location Affected: REPORTS: Lower Extremity (R) Timing: REPORTS: Gradual Duration: <1 week Severity: Moderate Recent Injury: REPORTS: Possibly (As above) Context of Injury: REPORTS: Other (Struck leg on edge of bathtub) Location at Time of Onset: REPORTS: Home Quality: REPORTS: "Pain" Modifying Factors: DENIES: Nothing Exacerbates, Walking, Movement, Rest, Ice, Nothing Relieves, Other Associated Symptoms: DENIES: Chest Pain, Shortness of Breath, Rapid Heart Rate, Fainting, Other Similar Symptoms Previously: No Recent Care Received: REPORTS: Recently Seen Any Prior Injuries Related to Current Complaint?: Yes (as above) - Patient Home Medications Home Medications: Home Medications Prednisone 1 tab PO QD #30 tab 12/22/14 Aspirin [Aspir 81] 81 mg PO DAILY tab 12/10/16 Fluticasone Propionate [Flonase Allergy Relief] 1 spr BIJAN QD PRN #1 spr Ranitidine HCl [Zantac] 2 tab PO QHS #60 tab 12/10/16 Sennosides [Senna] 2 tab PO QHS #60 tab 12/10/16 Cholecalciferol (Vitamin D3) [Vitamin D3] 1 tab PO QD #30 tab 12/16/16 Clopidogrel Bisulfate [Plavix] 1 tab PO QD #30 tab 12/16/16 Cyanocobalamin (Vitamin B-12) [Vitamin B-12] 1 tab PO QD #30 tab 12/16/16 Furosemide 1 tab PO QD #30 tab 12/16/16 Mirtazapine 1 tab PO QHS #30 tab 12/16/16 Multivitamin [Daily Lawrence] 1 tab PO QD #30 tab 12/16/16 Washington-3 Fatty Acids/Fish Oil [Washington 3 1,000 Mg Softgel] 1 cap PO BID #60 cap Vit C/Vit E/Lutein/Min/[place]-3 [Ocuvite Softgel] 1 cap PO QD #30 cap 12/16/16 Mirtazapine 1 tab PO QHS #90 tab 02/22/17 Ranitidine HCl [Zantac] 2 tab PO QHS #180 tab 02/22/17 gabapentin 100 mg capsule 100 mg PO QHS #60 cap 03/10/17 metoprolol tartrate 25 mg tablet 12.5 mg PO BID #30 tab 05/05/17 - Patient Allergies Allergies/Adverse Reactions: Allergies 3 Allergy/AdvReac Type Severity Reaction Status Date / Time cephalexin [From Keflex] Allergy Intermediate ITCHING Verified 05/17/17 11:43 clindamycin Allergy Intermediate diarrhea Verified 05/17/17 09:21 and vomiting Penicillins Allergy Mild rash Verified 05/17/17 09:21 Sulfa (Sulfonamide Allergy Mild rash Verified 05/17/17 09:21 Antibiotics) alendronate sodium Allergy NOT Verified 05/17/17 09:21 APPLICABLE bupropion Allergy NOT Verified 05/17/17 09:21 APPLICABLE calcitriol Allergy NOT Verified 05/17/17 09:21 APPLICABLE fentanyl Allergy NOT Verified 05/17/17 09:21 APPLICABLE gemfibrozil Allergy NOT Verified 05/17/17 09:21 APPLICABLE loratadine Allergy NOT Verified 05/17/17 09:21 APPLICABLE methocarbamol Allergy NOT Verified 05/17/17 09:21 APPLICABLE sertraline Allergy NOT Verified 05/17/17 09:21 APPLICABLE simvastatin Allergy NOT Verified 05/17/17 09:21 APPLICABLE Past Medical History - heen HEENT History: Macular Degeneration, Cataracts, Other (please comment) Additional HEENT History: CATARACT REMOVAL BILAT Cardiovascular History: Hypertension, Arrhythmia, Pacemaker, Other (please comment) Additional Cardiovasular History: A FIB/FLUTTER, MITRAL VALVE INSUFFICIENCY WITH REPAIR Respiratory History: Denies History Gastrointestinal History: GERD Genitourinary History: Denies History Endocrine History: Denies History Musculoskeletal History: Arthritis, Osteoporosis, Other (please comment) Prosthesis or Implant: Yes (PACEMAKER, RIGHT HIP REPLACEMENT HARDWARE) Additional Musculoskeletal History: MYALGIAS Neurological History: TIA, Other (please comment) Additional Neurological History: CHRONIC 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 Blood Disorders: Denies History Psychiatric History: Denies History History of Sexually Transmitted Diseases: No Cancer History: Skin In Past Year Been Physically Harmed or Verbally Threatened: No History of MDRO: No History of Other Communicable Diseases: No Tobacco Use: Never Smoker Alcohol Use: Occasionally In the Past 12 Months, Have Used or Abuse Any Substance: None Previous Surgical History: Yes Type / Date of Surgery: TUBAL LIGATION, RIGHT HIP REPLACEMENT, MITRAL VALVE REPAIR, PACEMAKER LEFT CHEST, BILATERAL CATARACT REMOVAL, BILATERAL ROTATOR CUFF REPAIRS Anesthesia Reactions: No Malignant Hyperthermia: No Significant Family History: No pertinent family hx Past Medical History Reviewed: Reviewed - No Changes ROS - Limitations ROS Limitations: No Limitations Constitution: REPORTS: Denies Symptoms Cardiovascular: REPORTS: Denies Cardiac Symptoms Respiratory: REPORTS: Denies Resp Symptoms Neurological: REPORTS: Denies Neuro Symptoms Gastrointestinal: REPORTS: Denies GI Symptoms Endocrine: REPORTS: Denies Symptoms Musculoskeletal: REPORTS: Other (Ecchymosis and a large hematoma posterior aspect right lower leg) Genitourinary: REPORTS: Denies Symptoms Eyes: REPORTS: Denies Symptoms ENT: REPORTS: Denies Symptoms Skin: REPORTS: Excessive Bruising (Both lower extremities shows multiple contusions) Lympathic: REPORTS: Denies Lympathic Symptoms Immunologic: POSITIVE: Denies Symptoms Psychiatric: POSITIVE: Denies Psych Symptoms Lower Ext Problem Exam - General Appearance General Appearance: POSITIVE: Alert, Cooperative, No Acute Distress, No Evidence of Trauma - Extremities Lower Extremity: POSITIVE: Tenderness (At site of large hematoma posterior aspect right lower leg. Trophic changes of both lower legs compatible with extended prednisone use. Multiple ecchymoses both upper and lower legs.) Joint Exam: POSITIVE: Joints Normal, Normal ROM, Normal Gait, Normal Weight Bearing Vascular: POSITIVE: No Vascular Compromise, Full Pulses, Equal Pulses - Neuro / Psych Neuro/Psych: POSITIVE: Sensation Normal, Motor Normal, Oriented to Person, Oriented to Place, Oriented to Time, hand alterations tailor Normal as Tested, Mood Appropriate, Affect Appropriate - Neck / Back / Pelvis Back / Neck: POSITIVE: Normal Inspection, Normal ROM - Skin Skin: POSITIVE: Other (As above; multiple bruises both legs, upper and lower. Large hematoma posterior aspect right lower leg) - HEENT HEENT: POSITIVE: Head Inspection Nml, Eyes Inspection Nml, Ears Inspection Nml, Nose Inspection Nml, Oral/Dental Inspect. Nml, Pharynx Inspect. Nml, PERRL, EOMI - Respiratory / CVS Respiratory / CVS: POSITIVE: No Respiratory Distress, Breath Sounds Normal, Regular Rate/Rhythm, Heart Sounds Normal Peripheral Pulses: Radial (R): 2+, Radial (L): 2+, Dorsalis-pedis (R): 2+, Dorsalis-pedis (L): 2+ - Abdomen Abdomen: Soft: (All Quadrants), Normal Bowel Sounds: (All Quadrants), Denies Tenderness: (All Quadrants), No Splenomegaly: (All Quadrants), No Hepatomegaly: (All Quadrants), No Guarding: (All Quadrants), No Rebound: (All Quadrants), No Palpable Pulse: (All Quadrants), No Palpabale Mass: (All Quadrants), No Distention: (All Quadrants), No Rigidity: (All Quadrants) Images - Uploaded Photos Uploaded Photos: - Lower Extremities Lower Extremities: 1 - Hematoma Lower Ext Problem Progress - Results Reviewed by me Lab Results Reviewed by Me: Yes (coags normal) CBC and BMP: 05/17/17 10:07 05/17/17 10:07 - Patient's Progress Pain Medication Addressed: POSITIVE: Not Applicable School/Work Release Addressed: POSITIVE: Not Applicable Re-Examine Time: 10:45 Re-Examine Comment: Admitted by hospitalist and surgeon for hematoma evacuation Status: POSITIVE: Unchanged, Re-Examined - Consult Consult (If Yes, Name of Consulting MD & Time Called): Yes (Dr. Gutierrez and Dr. Hernandez, [id number]) Consulting MD will see pt:: POSITIVE: [facility] [place] Admit Counseled: POSITIVE: Patient, RE: Lab Results, RE: DX, RE: Need for F/U Patient Care Time - Estimated PCT Patient Care Time (In Minutes): 45 Vital Signs - VS Reviewed Vital Signs Reviewed: Yes Discharge Clinical Impression: History of systemic steroid therapy, Hematoma, Polymyalgia rheumatica Discharge Disposition: Admit to Inpatient Condition: Stable Date Decision to Admit to Inpatient: 05/17/17 Time Decision to Admit to Inpatient: 10:45
[2017-05-18] MEDS: HYDROcodone-APAP 5 MG -325 MG TABLET PO PRN (03:31)
[2017-05-18 06:15] LABS: BLOOD UREA NITROGEN 28 mg/dL (7-22)
[2017-05-18 06:23] LABS: Hematocrit [HCT] 34.1 % (37.0-47.0); Hemoglobin [HGB] 11.2 g/dL (12.0-16.0); MEAN CORPUSCULAR HEMOGLOBIN 31.1 PG (27-31); MEAN CORPUSCULAR VOLUME 94 FL (81-99); MEAN PLATELET VOLUME 7.6 FL (7.4-12.2); NEUTROPHILS % (AUTO) 68.3 % (50-80); RED BLOOD COUNT 3.62 10^6/uL (4.20-5.40)
[2017-05-18 06:24] LABS: BASOPHILS # (AUTO) 0.05 10*3/UL; BASOPHILS % (AUTO) 0.5 % (0-1); EOSINOPHILS # (AUTO) 0.31 10*3/UL; EOSINOPHILS % (AUTO) 3.1 % (0-8); LYMPHOCYTES # (AUTO) 1.79 10*3/uL; MONOCYTES # (AUTO) 1.03 10*3/UL (0.3-0.8); MONOCYTES % (AUTO) 10.3 % (5-15); NEUTROPHILS # (AUTO) 6.86 10*3/UL; PLATELET MORPHOLOGY COMMENT NORMAL MORPHOLOGY (NORM); RBC MORPHOLOGY COMMENT NORMAL MORPHOLOGY (NORM); WBC MORPHOLOGY COMMENT NORMAL MORPHOLOGY (NORM)
[2017-05-18] MEDS: ACETAMINOPHEN 325 MG TABLET PO PRN ×2 (07:59→20:39)
[2017-05-18] MEDS: POLYETHYLENE GLYCOL 3350 17 GM POWDER PO SCH (09:00)
[2017-05-18] MEDS: Metoprolol TARTRATE Tab 25 MG TAB PO SCH ×2 (09:01→20:30)
[2017-05-18] MEDS: predniSONE 5 MG TABLET PO SCH (09:02)
[2017-05-18] MEDS: Multivitamin Tab 1 TAB PO SCH (09:02)
[2017-05-18] MEDS: Beta Carot W/Vit E,C,Min Tab 1 TAB TAB PO SCH (09:02)
[2017-05-18] MEDS: CHOLECALCIFEROL 1000 IU TABLET PO SCH (09:02)
--- NOTE | 2017-05-18 09:02 | PDOC(PROG) ---
Subjective Post Op Day: postop day 1 Pain Management: PO Diet: Regular Date and Time of Service: 05/18/2017 at 9 AM Interval History: Patient states that she is doing fine Objective : Data - Labs CBC and BMP: 05/18/17 04:58 05/18/17 04:58 - Vital Signs Vital Signs and I&O: Vital Signs - Last Taken Temperature 98.9 F 05/18/17 07:59 Pulse Rate 67 05/18/17 07:54 Respiratory Rate 21 05/18/17 07:54 Blood Pressure 124/49 05/17/17 16:21 Pulse Ox 92 05/18/17 07:54 Intake and Output (24hr x 4 totals) 05/16/17 05/17/17 05/18/17 05/19/17 05:59 05:59 05:59 05:59 Intake Total 655 / 655 250 / 250 Output Total 152 / 152 Balance 503 / 503 250 / 250 Objective : Exam - General General Appearance: No Acute Distress - Extremities Additional Extremities Exam Details: Dressing is dry. Assessment and Plan - Patient Problems (1) Hematoma Current Visit: Yes Status: Acute Code(s): T14.8XXA - Other injury of unspecified body region, initial encounter - Assessment / Plan Additional Assessment/Plan Details: At this point the patient will have wound management by physical therapy. She should have wet-to-dry dressing changes. Possibly need further debridement can be done as an outpatient or at bedside. The patient is questioned for the patient at this time is where to do wound care. She needs be. Swing bed are can do wound care completely as an outpatient or possibly patient needs to be at the halfway for rehabilitation. This be arranged by the hospitalist
--- NOTE | 2017-05-18 12:44 | PTI REPORT ---
Thank you for the referral of Matilda Gonzalez. She was seen on 05/18/17 for an inpatient evaluation secondary to an open wound and generalized weakness. SUBJECTIVE: The patient is an 86-year-old female. The patient reports she went down to physical therapy yesterday morning and under advisement of the physical therapist she was taken up to the emergency room per Dr. Logan's recommendation after seeking a telephone conference opinion. She came into therapy with a large bruise that extended all the way down her left leg that happened over the weekend. The patient was taken to urgent care on Wednesday and then again to the ER on Wednesday but was discharged both times and was told to refer back to physical therapy. However, due to the extend of the hematoma, she was admitted to the ER yesterday which led to admittance into the hospital as well as debridement under Dr. Logan yesterday afternoon. She states she is very anxious about her dressing change due to the pain. She states with her pain medication on board she rates her pain level as a 3/10 on the verbal analog scale (0=no pain, 10=worst pain) PAST MEDICAL HISTORY: Past medical history can be found in the patient's medical record. OBJECTIVE FINDINGS: Pain: The patient reports her pain level at worst at 9/10; however, it is currently at 3/10 after being administered pain medication approximately 30 minutes ago. Wound: The patient presented with a post op surgical dressing with 90% strike through for sanguineous drainage. Upon dressing removal, the wound presented with 100% granulation tissue with heavy exudate. Please see the photos of the wound in the nursing notes. The wound measures 16 centimeters x 11 centimeters and is 2 centimeters deep. It has well defined borders. The carlos-skin quality is poor. Bed mobility: The patient is able to perform bed mobility with increased time due to her pain. Range of motion: Lower extremity range of motion is within functional limits. Strength: Strength was not formally tested due to her pain level at this time. Ambulation: The patient is able to ambulate with the use of an all wheeled walker. ASSESSMENT: Problem List: Open wound Risk of infection Generalized weakness Physical Therapy Goals: To be met by discharge from inpatient: Patient will promote clean wound healing. Patient's wound size will decrease by 25-50%. Patient will be able to ambulate up to 300 feet for community ambulation with appropriate assistive device. TREATMENT PLAN: Patient will be seen on a PRN basis for her wound. The dressing will most likely be changed daily and the patient will most likely be seen BID for strengthening and mobility. INITIAL TREATMENT: Treatment today consisted of the initial evaluation followed by post op dressing removal. The area was cleansed with wound cleanser and was dressed with Lidocaine followed by Promogran Angle, ABD pads, Kerlix, and Coban. MTDD
--- NOTE | 2017-05-18 16:33 | OTI REPORT ---
Thank you for the referral of Matilda Gonzalez. She was seen on 05/18/17 for an occupational therapy inpatient evaluation secondary to generalized weakness. SUBJECTIVE: The patient is an 86-year-old female who is being seen secondary to having a hematoma on her left lower extremity that needed debrided by Dr. Logan. The patient has a history of a-fib, TIAs, hypertension, polymyalgia, and rheumatica. Per report, it states her dog was probably rubbing up against her leg lately. The patient just recently moved to [place] with her daughter and son-in-law; however, she states that her daughter just had shoulder and knee surgery and her son-in-law is going through a lot of back issues right now, so they are not in the best shape to help the patient at home. The patient does have a ramp that goes to the top level of the house. The patient does live on the top level in her daughter's home. The patient has a walk in shower with a shower hose and a shower chair. She also has a high rise toilet seat. The patient does have a four wheeled walker with a seat that she sits on. The patient is able to dress herself, but she reports it takes her increased time. She says it is more difficult to pull things over her head because of her shoulder difficulties. She does do the pulleys at home to increase her shoulder range of motion. Her family is there to help with laundry, cooking, cleaning, and grocery shopping. She states sometimes she fixes her own lunch. She does report that her son-in-law was helping her set up her medications; however, she was noticing some discrepancies with him doing this for her, so she started taking over again and making a checklist with her medications. The patient reports at times when eating foods and drinking liquids, she feels like a bubble is caught in her throat. She does take Zantac for heartburn and acid reflux. PAST MEDICAL HISTORY: Past medical history can be found in the patient's medical record. OBJECTIVE FINDINGS: Bed mobility: Today the patient was able to come from supine to sit with min assist. While sitting edge of bed the patient was able to independently sit statically. She does have a kyphotic posture. Range of motion: The patient was able to raise upper extremities to 70 degrees bilaterally. Elbow flexion/extension was within normal limits. Wrist flexion/ extension was within normal limits. Strength: Strength in shoulder flexion was 2+/5, shoulder extension was 3/5, elbow flexion/extension was 3+/5, and wrist flexion/extension was 3+/5. Transfers: The patient was able to come from sit to stand with min assist. While standing with her wheeled walker she needed min assist for balance. The patient was able to stand for approximately 5 minutes with min assist for balance. Ambulation: The patient did toe touch weight-bear on the left side where her wound was debrided. Activities of daily living: The patient was able to sit edge of bed x10 minutes to complete hygiene tasks. We did not attempt lower extremity dressing activities secondary to her wound and dressing. ASSESSMENT: Problem List: Decreased upper extremity strength Decreased ability to perform ADLs Decreased ability to perform functional transfers Short-Term Goals: To be met by discharge from inpatient: Patient will be able to dress self independently including set up. Patient will increase shoulder strength to 3+/5 and elbow and wrist strength to 4+/5 to improve her abilities to perform functional transfers and ADLs. Patient will improve her functional transfers to modified independence with her wheeled walker including shower and toilet transfers. Long-Term Goals: To be met following discharge from inpatient: Patient will be discharged home, demonstrating safety and independence with all functional activities and functional transfers. TREATMENT PLAN: Patient will be seen B.I.D during the week and one time per day over the weekend as an inpatient to address the above goals and objectives. INITIAL TREATMENT: Treatment today consisted of the initial evaluation followed by bed mobility, standing tasks, and sitting edge of bed to complete hygiene. After set up the patient was independent with brushing hair, brushing teeth, and washing face. LIS
--- NOTE | 2017-05-18 20:01 | PDOC(PROG) ---
Date and Time of Service: 05/18/20171951 Interval History: No chest pain, shortness breath, nausea or vomiting, dressing change really hurt her today and she screamed out in pain. Overall, her leg pain is fairly well-controlled. PT note read and discussed with surgery. Plan is to continue to do dressing changes, start workup for weight loss, and hopefully be able to swing the patient for continued wound care, physical therapy and occupational therapy. Discussed with family at bedside. Objective : Data - Labs CBC and BMP: 05/18/17 04:58 05/18/17 04:58 Additional Lab Results: Laboratory Results 05/18/17 05/18/17 05/18/17 Range/Units 04:58 04:58 04:58 WBC 10.0 (4.8-10.8) 10^3/uL RBC 3.62 L (4.20-5.40) 10^6/uL Hgb 11.2 L (12.0-16.0) g/dL Hct 34.1 L (37.0-47.0) % MCV 94 (81-99) FL MCH 31.1 H (27-31) PG MCHC 33.0 (33-37) g/dL RDW Coeff of Lissa 14.2 (11.5-14.5) % Plt Count 159 (140-350) 10*3/uL MPV 7.6 (7.4-12.2) FL Neut % (Auto) 68.3 (50-80) % Lymph % (Auto) 17.8 (10-50) % [place] % (Auto) 10.3 (5-15) % Eos % (Auto) 3.1 (0-8) % Baso % (Auto) 0.5 (0-1) % Neut # (Auto) 6.86 10*3/UL Lymph # (Auto) 1.79 10*3/uL [place] # (Auto) 1.03 H (0.3-0.8) 10*3/UL Eos # (Auto) 0.31 10*3/UL Baso # (Auto) 0.05 10*3/UL WBC Morphology Comment Normal morphology (NORM) Plt Morphology Comment Normal morphology (NORM) RBC Morph Comment Normal morphology (NORM) PT 10.5 (9.7-11.4) secs INR 0.99 (0.00-5.90) N/A APTT 28.6 (22.6-36.2) SECS Sodium 143 (135-145) meq/L Potassium 3.6 L (3.8-5.2) meq/L Chloride 106 (98-112) meq/L Carbon Dioxide 27 (23-33) meq/L Anion Gap 10 (5-20) BUN 28 H (7-22) mg/dL Creatinine 1.4 H (0.50-1.20) mg/dL Estimated GFR [place] BUN/Creatinine Ratio 20.00 (6-20) Glucose 73 L (78-110) mg/dL Calculated Osmolality 300.0 H (267-292) mOsm/kg Calcium 8.8 (8.7-10.7) mg/dL Objective : Exam - General General Appearance: No Acute Distress, Cooperative Additional General Exam Details: Vital Signs - Last Taken Temperature 98.2 F 05/18/17 17:47 Pulse Rate 76 05/18/17 17:47 Respiratory Rate 18 05/18/17 17:47 Blood Pressure 124/49 05/17/17 16:21 Pulse Ox 93 05/18/17 17:47 - Head Head Exam: Normal Inspection, Normocephalic, Atraumatic - Eye Eye Exam: No Scleral Icterus - ENT ENT Exam: Mucous Membranes Moist - Respiratory Respiratory Exam: Clear to Auscultation - Bilaterally, Breathing Non Labored - Cardiovascular Cardiovascular Exam: RRR, No Murmur, No Clicks, No Gallops, No Rubs, No JVD - GI/Abdominal GI/Abdominal Exam: Normal Bowel Sounds, Non Tender, Non Distended, Soft - Extremities Extremities Exam: No Clubbing Present, No Edema Present, No Cyanosis Present Additional Extremities Exam Details: Very friable skin, bruises on all extremities. Wound is dressed, warm to touch, dry and intact. - Neurological Neurological Exam: Alert, Oriented x 3, No Facial Droop, Speech Intact / Clear, Moves All Extremities Equally Assessment and Plan - Patient Problems (1) Hematoma Current Visit: Yes Status: Acute Code(s): T14.8XXA - Other injury of unspecified body region, initial encounter (2) Atrial fibrillation Current Visit: Yes Status: Acute Code(s): I48.91 - Unspecified atrial fibrillation Qualifiers: Atrial fibrillation type: chronic Qualified Code(s): I48.2 - Chronic atrial fibrillation (3) Hypertension Current Visit: Yes Status: Acute Code(s): I10 - Essential (primary) hypertension Qualifiers: Hypertension type: essential hypertension Qualified Code(s): I10 - Essential (primary) hypertension (4) Loss of weight Current Visit: Yes Status: Acute Code(s): R63.4 - Abnormal weight loss (5) Polymyalgia rheumatica Current Visit: Yes Status: Acute Code(s): M35.3 - Polymyalgia rheumatica (6) History of systemic steroid therapy Current Visit: Yes Status: Acute Code(s): Z92.241 - Personal history of systemic steroid therapy - Assessment / Plan Additional Assessment/Plan Details: From a wound care perspective, our hope is to continue with dressing changes, but this will heal, and maintain oversight of this until this is healed up and hopefully avoid skin grafting. The patient will need some nutritional supports I got dietary involved and that went very well today. Start workup for loss of weight, including TSH and free T4, vitamin levels as well. She does not seem to have any GI symptoms that suggest stricture or ulcer disease, but I think if the patient continues to have poor appetite, we may need to consider an EGD to look for any potential gastrointestinal cancer such as esophageal issues or stomach cancers. Given the pain with dressing change today, I'll start Dilaudid half milligrams IV scheduled 30 minutes prior to wound dressing change. I discussed with cardiology. With the watchman procedure, typically Plavix is used for 3 months for endothelialization similar to stents. The patient is been on Plavix for over 3 months since that procedure, and I will stop Plavix at this time and they were okay with that. I would hold aspirin another day or so and resume, cautiously, at 81 mg, on . I have a von Willebrand disease panel pending. Probably the bruising is all related to Plavix, but if there is any factor issues that may be a problem as well. We can address that as the labs come back. I suspect that'll be a good 7 -10 days. Patient and family agree with the plan. By the way, she is full code.
[2017-05-18] MEDS: Senna Tab 8.6 MG TAB PO SCH (20:30)
[2017-05-18] MEDS: GABAPENTIN 100 MG CAPSULE PO SCH (20:30)
[2017-05-18] MEDS: Mirtazapine Tab 15 MG TAB PO SCH (20:31)
[2017-05-19 07:03] LABS: BLOOD UREA NITROGEN 26 mg/dL (7-22)
[2017-05-19 07:19] LABS: VITAMIN D 25-HYDROXY 42.5 NG/ML (30-100)
[2017-05-19] MEDS: ACETAMINOPHEN 325 MG TABLET PO PRN (07:47)
[2017-05-19] MEDS: Multivitamin Tab 1 TAB PO SCH (08:48)
[2017-05-19] MEDS: predniSONE 5 MG TABLET PO SCH (08:48)
[2017-05-19] MEDS: CHOLECALCIFEROL 1000 IU TABLET PO SCH (08:48)
[2017-05-19] MEDS: Metoprolol TARTRATE Tab 25 MG TAB PO SCH ×2 (08:48→20:33)
[2017-05-19] MEDS: Beta Carot W/Vit E,C,Min Tab 1 TAB TAB PO SCH (08:48)
[2017-05-19] MEDS: POLYETHYLENE GLYCOL 3350 17 GM POWDER PO SCH (08:50)
[2017-05-19] MEDS ORDERED: HYDROmorphone 2 MG/1 ML IVP PRN (09:00)
[2017-05-19] MEDS ORDERED: HYDROmorphone 2 MG/1 ML IVP SCH (09:00)
--- NOTE | 2017-05-19 09:27 | PT.PROG ---
Progress Note Progress Note: wound care note: S: pt. c/o pain with dressing change. O: Treatment consisted of dressing change of left LE. Soiled dressing was tightly adherred to wound and required saline solution to remove. Wound edges were covered with calmoseptine, wound bed covered with medihoney alginate, kerlix, abd pad and coban. Pt. to be seen later for exercises, once her dilaudid is less affective on her balance. A: Pt.'s wound overall looks well. it is 100% granulated with blood flow noted. Drainage is moderate. P: Continue per POC to assist with would healing. Nancy Yanes, DETECTIVE B[employer]AU CHIEF
--- NOTE | 2017-05-19 11:14 | OT.PROG ---
Progress Note Progress Note: S: pt was in her room upon arrival. she reported she was given dilotted for pain control for her wound change and it worked much better than the previous pain medication. she reports feeling "drunk" and "woozy" O: pt agreed to complete therapy in her room. she completed B UE exercises 20 reps x 2 sets of elbow flexion, shoulder flexion, horizontal abduction, triceps , pt did well. she was on .5 liters of oxygen and her levels stayed withing mid 90s. A: pt is doing well and she demonstrated fair activity tolerance only requiring 2 short breaks. P: pt is doing well and we will continue to increase act jerome.
--- NOTE | 2017-05-19 13:14 | PDOC(PROG) ---
Objective : Data - Labs CBC and BMP: 05/18/17 04:58 05/19/17 06:33 Assessment and Plan - Patient Problems (1) Hematoma of right lower extremity Current Visit: Yes Status: Acute Priority: Medium Comment: This is been evacuated by Dr. kateryna Birch she is continuing to do wound care. Patient was on Plavix most likely this is the cause of her bleed is was held she will be resuming aspirin for stroke prophylaxis as soon as the surgery recommends it Code(s): S80.11XA - Contusion of right lower leg, initial encounter (2) Poor appetite Current Visit: Yes Status: Acute Priority: Medium Comment: Patient today as the evening protein shake this seems to improve nutrition suggested Yefri will see how this goes with her increase in eating Code(s): R63.0 - Anorexia (3) Atrial fibrillation Current Visit: Yes Status: Acute Comment: Most likely nonvalvular has seen specialists in [facility] will resume aspirin as soon as safe for her major hematoma bleed most likely from the Plavix. Code(s): I48.91 - Unspecified atrial fibrillation Qualifiers: Atrial fibrillation type: chronic Qualified Code(s): I48.2 - Chronic atrial fibrillation (4) Hypertension Current Visit: Yes Status: Chronic Comment: Stable at present time on beta sima Code(s): I10 - Essential (primary) hypertension Qualifiers: Hypertension type: essential hypertension Qualified Code(s): I10 - Essential (primary) hypertension (5) Acute kidney injury Current Visit: Yes Status: Acute Comment: Most likely prerenal from dehydration we'll hydrate patient with normal saline at 75 mL's an hour Code(s): N17.9 - Acute kidney failure, unspecified
[2017-05-19] MEDS: NORMAL SALINE 10 ML SYRINGE FLUSH IVP PRN (14:20)
[2017-05-19] MEDS: Sodium Chloride 0.9% 1,000 ML IV SCH (14:21)
--- NOTE | 2017-05-19 14:22 | OT.PROG ---
Progress Note Progress Note: S: pt reports she had a protein shake for lunch and was still feeling "drunk" and feels like it is getting worse, although would take this feeling over the pain in her leg. O: pt was able to complete sit to stand transfer with 15% A x 2 for safety. she was able to take 3 steps to get a weight and then transferred into the WC. pt was brought to therapy where she completed PT services first. she then completed 4 minutes forward and 3 minutes backwards on the arm bike. pt took 1- 1 min break. pt then was taken back to her room where she transferred into the chair with CGA x 2 for safety. pt was left with her call light and chair alarm. A: pt is diong well, she enjoyed coming to the therapy gym. P: cont per POc
--- NOTE | 2017-05-19 14:27 | PT.PROG ---
Progress Note Progress Note: S. Patient stated that she feels "drunk from the dilaudid." She reported no pain in her leg. O. Patient was wheeled to the therapy gym where she performed seated exercises in the form of; long arc quads, heel toe raises, marches, hip abduction/ adduction all with no resistance x 10. Patient performed 5 sit to stands then was left with OT for further therapy. A. Patient tolerated therapy well, she was able to perform all tasks however required mod assist with transfers and sit to stands. Patient is very weak and would continue to benefit from skilled therapy at this time. P. Continue POC.
[2017-05-19] MEDS: HYDROcodone-APAP 5 MG -325 MG TABLET PO PRN (17:47)
[2017-05-19] MEDS: Senna Tab 8.6 MG TAB PO SCH (20:33)
[2017-05-19] MEDS: Mirtazapine Tab 15 MG TAB PO SCH (20:33)
[2017-05-19] MEDS: GABAPENTIN 100 MG CAPSULE PO SCH (20:33)
[2017-05-20] MEDS: ACETAMINOPHEN 325 MG TABLET PO PRN (04:38)
[2017-05-20] MEDS: Sodium Chloride 0.9% 1,000 ML IV SCH ×2 (04:38→23:24)
[2017-05-20 06:46] LABS: Hematocrit [HCT] 31.8 % (37.0-47.0); Hemoglobin [HGB] 10.6 g/dL (12.0-16.0); MEAN CORPUSCULAR HEMOGLOBIN 31.7 PG (27-31); MEAN CORPUSCULAR HGB CONC 33.4 g/dL (33-37); MEAN CORPUSCULAR VOLUME 95 FL (81-99); RED BLOOD COUNT 3.35 10^6/uL (4.20-5.40)
[2017-05-20 06:47] LABS: BASOPHILS # (AUTO) 0.09 10*3/UL; BASOPHILS % (AUTO) 0.07 % (0-1); EOSINOPHILS # (AUTO) 0.17 10*3/UL; EOSINOPHILS % (AUTO) 1.3 % (0-8); LYMPHOCYTES # (AUTO) 1.51 10*3/uL; MEAN PLATELET VOLUME 7.6 FL (7.4-12.2); MONOCYTES # (AUTO) 1.46 10*3/UL (0.3-0.8); MONOCYTES % (AUTO) 11.5 % (5-15); NEUTROPHILS # (AUTO) 9.49 10*3/UL; NEUTROPHILS % (AUTO) 74.6 % (50-80); PLATELET MORPHOLOGY COMMENT NORMAL MORPHOLOGY (NORM); RBC MORPHOLOGY COMMENT NORMAL MORPHOLOGY (NORM); WBC MORPHOLOGY COMMENT NORMAL MORPHOLOGY (NORM)
[2017-05-20 06:55] LABS: BLOOD UREA NITROGEN 23 mg/dL (7-22); SERUM ALBUMIN 2.8 g/dL (3.5-4.8)
[2017-05-20] MEDS: ASPIRIN EC 81 MG TABLET PO SCH (08:19)
[2017-05-20] MEDS: Metoprolol TARTRATE Tab 25 MG TAB PO SCH ×2 (08:19→21:03)
[2017-05-20] MEDS: Beta Carot W/Vit E,C,Min Tab 1 TAB TAB PO SCH (08:19)
[2017-05-20] MEDS: Multivitamin Tab 1 TAB PO SCH (08:19)
[2017-05-20] MEDS: predniSONE 5 MG TABLET PO SCH (08:19)
[2017-05-20] MEDS: CHOLECALCIFEROL 1000 IU TABLET PO SCH (08:19)
[2017-05-20] MEDS: POLYETHYLENE GLYCOL 3350 17 GM POWDER PO SCH (10:49)
--- NOTE | 2017-05-20 11:21 | PDOC(PROG) ---
Interval History: Patient appears to be in good spirits. She wants to continue to do physical therapy even though it tires her out but she is wanting to improve. The dye lauded that they were offered to go this morning she was sleepy and would like to try something different and I did tell her yesterday and I agree we will try Tylenol 1000 mg when necessary for pain nice chest pain nausea vomiting Objective : Data - Labs CBC and BMP: 05/20/17 06:37 05/20/17 06:37 Objective : Exam - General General Appearance: No Acute Distress - Head Head Exam: Normal Inspection, Normocephalic - Respiratory Respiratory Exam: Clear to Auscultation - Bilaterally, Breathing Non Labored, Normal To Percussion - Cardiovascular Cardiovascular Exam: RRR, No Murmur, No Clicks - GI/Abdominal GI/Abdominal Exam: Normal Bowel Sounds, Non Distended, Soft - Extremities Extremities Exam: No Clubbing Present, No Edema Present, No Cyanosis Present Assessment and Plan - Patient Problems (1) Hematoma of right lower extremity Current Visit: Yes Status: Acute Priority: Medium Comment: Continue wound care for further physical therapy and occupational therapy Code(s): S80.11XA - Contusion of right lower leg, initial encounter (2) Poor appetite Current Visit: Yes Status: Acute Priority: Medium Comment: This is improved Code(s): R63.0 - Anorexia (3) Atrial fibrillation Current Visit: Yes Status: Acute Comment: Aspirin was restarted today for stroke prophylaxis Code(s): I48.91 - Unspecified atrial fibrillation Qualifiers: Atrial fibrillation type: chronic Qualified Code(s): I48.2 - Chronic atrial fibrillation (4) Hypertension Current Visit: Yes Status: Chronic Comment: Stable Code(s): I10 - Essential (primary) hypertension Qualifiers: Hypertension type: essential hypertension Qualified Code(s): I10 - Essential (primary) hypertension (5) Acute kidney injury Current Visit: Yes Status: Acute Comment: Improving with IV fluids most likely prerenal she is not taking much by mouth fluids I will continue IV Code(s): N17.9 - Acute kidney failure, unspecified
[2017-05-20] MEDS: ONDANSETRON 4 MG/2 ML VIAL IVP PRN ×2 (13:42→20:30)
[2017-05-20] MEDS: NORMAL SALINE 10 ML SYRINGE FLUSH IVP PRN (13:43)
[2017-05-20] MEDS: HYDROcodone-APAP 5 MG -325 MG TABLET PO PRN (13:43)
[2017-05-20 20:28] VITALS: BP 127/50
[2017-05-20] MEDS: Mirtazapine Tab 15 MG TAB PO SCH (21:03)
[2017-05-20] MEDS: GABAPENTIN 100 MG CAPSULE PO SCH (21:03)
[2017-05-20] MEDS: Senna Tab 8.6 MG TAB PO SCH (21:03)
[2017-05-21] MEDS: ACETAMINOPHEN 325 MG TABLET PO PRN (00:41)
[2017-05-21 07:53] VITALS: RESP 18; TEMP 99.2; O2SAT 94
[2017-05-21] MEDS: Sodium Chloride 0.9% 1,000 ML IV SCH (07:56)
[2017-05-21] MEDS: ASPIRIN EC 81 MG TABLET PO SCH (08:26)
[2017-05-21] MEDS: CHOLECALCIFEROL 1000 IU TABLET PO SCH (08:26)
[2017-05-21] MEDS: Metoprolol TARTRATE Tab 25 MG TAB PO SCH (08:26)
[2017-05-21] MEDS: predniSONE 5 MG TABLET PO SCH (08:26)
[2017-05-21] MEDS: Multivitamin Tab 1 TAB PO SCH (08:26)
[2017-05-21] MEDS: Beta Carot W/Vit E,C,Min Tab 1 TAB TAB PO SCH (08:26)
[2017-05-21] MEDS: POLYETHYLENE GLYCOL 3350 17 GM POWDER PO SCH (08:26)
[2017-05-21] MEDS: HYDROcodone-APAP 5 MG -325 MG TABLET PO PRN (08:27)
[2017-05-21 10:02] LABS: BLOOD UREA NITROGEN 23 mg/dL (7-22); SERUM ALBUMIN 2.4 g/dL (3.5-4.8)
[2017-05-21 10:16] LABS: Hematocrit [HCT] 31.2 % (37.0-47.0); Hemoglobin [HGB] 10.3 g/dL (12.0-16.0); MEAN CORPUSCULAR HEMOGLOBIN 31.2 PG (27-31); MEAN CORPUSCULAR HGB CONC 32.9 g/dL (33-37); MEAN CORPUSCULAR VOLUME 95 FL (81-99); RED BLOOD COUNT 3.29 10^6/uL (4.20-5.40)
[2017-05-21 10:17] LABS: MEAN PLATELET VOLUME 7.7 FL (7.4-12.2)
--- NOTE | 2017-05-21 11:35 | DCSUMMARY ---
Hospitalization Summary Hospital Course: Final Discharge Diagnosis: Current Visit Problems Problem Status Onset Code Hematoma Acute T14.8XXA Atrial fibrillation Acute I48.91 Hypertension Chronic I10 Loss of weight Acute R63.4 Polymyalgia rheumatica Acute M35.3 History of systemic steroid therapy Acute Z92.241 Hematoma of right lower extremity Acute S80.11XA Poor appetite Acute R63.0 Acute kidney injury Acute N17.9 Acute kidney injury Acute N17.9 Diagnostic Data, Laboratory Data, and Procedures of Signifigance: History and Physical pertinent to Admission: Final Discharge Diagnosis: Diagnostic Data, Laboratory Data, and Procedures of Signifigance: Past Medical History Medical History: 1. Polymyalgia rheumatica. 2. Atrial fibrillation. 3. Multiple hematomas on Coumadin therapy and now on Plavix therapy. These have also been treated by physical therapy in the past. 4. Hypertension Surgical History: 1. Multiple skin grafts related to hematomas. 2. Watchman procedure with atrial appendage device. 3. Pacemaker placement Pertinent Family History: Mother and father both passed on in their 90s related to heart disease and stroke issues Past Social History: Does not smoke or drink. Lives with her daughter and son- in-law here in [place], [place]. Had 3 children. Tobacco Use: Never Smoker In the Past 12 Months, Have Used or Abuse Any of the Following Substance: None Alcohol Use: None Medication / Allergies Final Discharge Diagnosis: Diagnostic Data, Laboratory Data, and Procedures of Signifigance: Course of Hospitalization: Is a very nice 86-year-old female with past medical history significant for atrial fibrillation, history of TIAs and very friable skin with easy bruising on chronic steroids also has a history of multiple episodes of hematomas on Coumadin patient underwent atrial appendage device placed to prevent atrial clots. Was supposed to be on Plavix for 3 months she was fine for a while but the bruising and got worse lately had multiple hematomas and required skin grafting and evacuation developed a significant right lower calf hematoma that started leaking Dr. kateryna Birch took the patient to the operating room to evacuate the hematoma she is doing well with the wound care PT and OT she still significantly weak aspirin was restarted yesterday 81 mg. She will continue to use prednisone for polymyalgia rheumatica which was tapered from 20 mg to 5 mg. She will be discharged to swing bed and custodial for strengthening and wound care On the date of discharge, the patient was examined: Gen.: No acute distress, alert, nontoxic Heart: Regular rate and rhythm, no murmurs, clicks, gallops, or rubs Lungs: Clear to auscultation bilaterally, breathing is nonlabored Abdomen/GI: Normal tones on auscultation, soft, nontender, nondistended Musculoskeletal/extremities: No clubbing, cyanosis, or edema Vitals reviewed and are listed below Assessment and Plan: 1. As per discharge assessments above 2. Disposition: Swing bed 3. Condition on discharge, stable and improved. 4. Diet: regular diet 5. Activities: resume normal activities 6. Follow-Up: 1. PCP 2. 7. Medications at the Time of Discharge: 8. Time, care, counseling and coordination of care for this discharge is greater than 30 minutes. Course of Hospitalization: On the date of discharge, the patient was examined: Gen.: No acute distress, alert, nontoxic Heart: Regular rate and rhythm, no murmurs, clicks, gallops, or rubs Lungs: Clear to auscultation bilaterally, breathing is nonlabored Abdomen/GI: Normal tones on auscultation, soft, nontender, nondistended Musculoskeletal/extremities: No clubbing, cyanosis, or edema Vitals reviewed and are listed below Assessment and Plan: 1. As per discharge assessments above 2. Disposition: 3. Condition on discharge, stable and improved. 4. Diet: regular diet 5. Activities: resume normal activities 6. Follow-Up: 1. PCP 2. 7. Medications at the Time of Discharge: 8. Time, care, counseling and coordination of care for this discharge is greater than 30 minutes. Course of Hospitalization: Very nice 56-year-old female On the date of discharge, the patient was examined: Gen.: No acute distress, alert, nontoxic Heart: Regular rate and rhythm, no murmurs, clicks, gallops, or rubs Lungs: Clear to auscultation bilaterally, breathing is nonlabored Abdomen/GI: Normal tones on auscultation, soft, nontender, nondistended Musculoskeletal/extremities: No clubbing, cyanosis, or edema Vitals reviewed and are listed below Assessment and Plan: 1. As per discharge assessments above 2. Disposition: 3. Condition on discharge, stable and improved. 4. Diet: regular diet 5. Activities: resume normal activities 6. Follow-Up: 1. PCP 2. 7. Medications at the Time of Discharge: 8. Time, care, counseling and coordination of care for this discharge is greater than 30 minutes.
--- NOTE | 2017-05-21 11:51 | PT.PROG ---
Progress Note Progress Note: S. Patient stated that she is feeling better today compared to when she first came in to the hospital. O. Patient was wheeled to the therapy gym where she performed seated exercises in the form of; long arc quads, heel toe raises, marches, hip abduction/ adduction, ball squeezes, all x 10, sit to stands x5. Patient was wheeled back to her room where she ambulated 15 feet to the chair and was left with alarm and call light. A. Patient tolerated therapy well today, she continues to be very weak and would continue to benefit from skilled therapy at this time. Patient was urged to do more in her room to keep her strength up. P. Continue POC.
[2017-05-21 14:40] LABS: VWF ACTIVITY 183 % (55 - 200); VWF COAG FACTOR 8 146 % (55 - 200); VWF FACTOR ANTIGEN 205 % (55 - 200)
--- NOTE | 2017-05-25 08:40 | PT.PROG ---
Progress Note Progress Note: S: Pt. states she is feeling ok today. O: Treatment consisted of functional activities: ube x 5, sit to stands x 10, laq, seated marches, pillow squeezes, resisted ham curls, ankle pumps; bicep curls x 10, IR/ER x 10, rows and over head press. She then ambulated approx 75 feet x 1 with FWW. She then received wound care to left posterior calf. Soiled dressing was removed and wound was cleansed. Medihoney alginate was placed on wound bed and calmoseptine around wound edges, covered with kerlix and coban. A: Pt. did very well with ambulating today. Her wound still presents with moderate drainage and painful with dressing change. She is willing to participate and doing well. P: Continue per POC to increase strength and activity tolerance. Nancy Yanes, DETECTIVE
== END 2017-05-21 11:58 | disposition swing bed (61) | DRG 605 ==
LOC: ER 09:06 → MED/SURG 11:34
PROVIDERS: ADMIT Family Medicine; ATTEND Family Medicine

== ENCOUNTER 2018-02-10 16:06 | Inpatient (IN) ==
--- NOTE | 2018-02-10 16:28 | PDOC ---
Altered Mental Status HPI - General Chief Complaint: Altered Mental Status Stated Complaint: CONFUSION, NON RESPONDING TO PAIN, FEVER Date Seen by Provider: 02/10/18 Time Seen by Provider: 16:17 Source: POSITIVE: EMS, [facility] records, Other (Patient's son) Exam Limitations: POSITIVE: Clinical condition Nurse's Notes Reviewed & Considered: Yes - History of Present Illness Initial Comments: This is a well-developed, well-nourished, 87-year-old female who is minimally responsive. This morning patient was in her normal state of health, per the son , who states she was active and engaging with normal activity and verbiage. He was contacted by the residential a short time ago because his mother was in the room vomiting and was unresponsive. EMS arrived found the patient to be vomiting and unresponsive. During movement from bed to the gurney a skin tear occurred on her left hand. This was bandaged in the field. Review of systems is unavailable because of the patient's unresponsiveness. She will open her eyes to her name and is able to stick out her tongue to instructions but further obedience to instructions is not forthcoming at this time. Last night patient was febrile to 99. Presently she is afebrile. Body Location Affected: REPORTS: Abdomen Timing: REPORTS: Abrupt Duration: 1 hour Severity: Severe Quality: REPORTS: "Pain" Character of AMS: REPORTS: Disoriented, Confused, Decreased Responsiveness Context: REPORTS: Alf Resident New Medications (if yes, list): No Patient Normals: REPORTS: Alert, Oriented x3 Associated Symptoms: REPORTS: Fever (Patient with a temp last night of 99.) - Patient Home Medications Home Medications: Home Medications Aspirin [Aspir 81] 81 mg PO DAILY tab 12/10/16 Ranitidine HCl [Zantac] 2 tab PO QHS #60 tab 12/10/16 Mirtazapine 1 tab PO QHS #30 tab 12/16/16 [place]-3 Fatty Acids/Fish Oil [[place] 3 1,000 mg Softgel] 1 cap PO BID #60 cap metoprolol tartrate 25 mg tablet 12.5 mg PO BID #30 tab 05/05/17 Acetaminophen [Tylenol] 650 mg PO Q6H PRN tab 06/29/17 gabapentin 100 mg capsule 100 mg PO BID cap 07/05/17 Mirtazapine [Remeron] 7.5 mg PO BEDTIME tab 07/26/17 cholecalciferol (vitamin D3) 1,000 unit tablet 1,000 unit PO QDAY tab 08/09/17 oxycodone-acetaminophen 5 mg-325 mg tablet 1 tab PO Q4H PRN tab 08/09/17 fluticasone 50 mcg/actuation nasal spray,suspension 1 spray INASL QD #1 g food supplement, lactose-reduced 0.04 gram-1.05 kcal/mL oral liquid 4 ea PO TID ml 09/13/17 dextran 70-hypromellose (PF) 0.1 %-0.3 % eye drops in a dropperette 1 drp OP BID ea 09/30/17 prednisone 5 mg tablet 15 mg PO DAILY tab 09/30/17 Famotidine [Pepcid] 20 mg PO BID 12/14/17 Vit C/E/Zn/Coppr/Lutein/Zeaxan [Preservision Areds 2 Softgel] 1 mg PO BID furosemide 20 mg tablet 20 mg PO BID tab 12/31/17 naloxegol 12.5 mg tablet 12.5 mg PO QAM #30 tab 01/06/18 - Patient Allergies Allergies/Adverse Reactions: Allergies 3 Allergy/AdvReac Type Severity Reaction Status Date / Time cephalexin [From Keflex] Allergy Intermediate ITCHING Verified 02/10/18 17:22 clindamycin Allergy Intermediate diarrhea Verified 02/10/18 17:22 and vomiting Penicillins Allergy Mild rash Verified 02/10/18 17:22 Sulfa (Sulfonamide Allergy Mild rash Verified 02/10/18 17:22 Antibiotics) alendronate sodium Allergy NOT Verified 02/10/18 17:22 APPLICABLE bupropion Allergy NOT Verified 02/10/18 17:22 APPLICABLE fentanyl Allergy NOT Verified 02/10/18 17:22 APPLICABLE gemfibrozil Allergy NOT Verified 02/10/18 17:22 APPLICABLE loratadine Allergy NOT Verified 02/10/18 17:22 APPLICABLE methocarbamol Allergy NOT Verified 02/10/18 17:22 APPLICABLE sertraline Allergy NOT Verified 02/10/18 17:22 APPLICABLE simvastatin Allergy NOT Verified 02/10/18 17:22 APPLICABLE Past Medical History - heen HEENT History: Macular Degeneration, Cataracts, Other (please comment) Additional HEENT History: CATARACT REMOVAL BILAT, limited peripheral vision Cardiovascular History: Hypertension, Arrhythmia, Pacemaker, Other (please comment) Additional Cardiovasular History: A FIB/FLUTTER, MITRAL VALVE INSUFFICIENCY WITH REPAIR Respiratory History: Denies History Gastrointestinal History: GERD Genitourinary History: Denies History Endocrine History: Denies History Musculoskeletal History: Arthritis, Osteoporosis, Other (please comment) Prosthesis or Implant: Yes (PACEMAKER, RIGHT HIP REPLACEMENT HARDWARE) Additional Musculoskeletal History: MYALGIAS Neurological History: TIA, Other (please comment) Additional Neurological History: CHRONIC 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 Blood Disorders: Denies History Psychiatric History: Denies History History of Sexually Transmitted Diseases: No Cancer History: Skin History of MDRO: No History of Other Communicable Diseases: No Alcohol Use: Occasionally In the Past 12 Months, Have Used or Abuse Any Substance: None Previous Surgical History: Yes Type / Date of Surgery: TUBAL LIGATION, RIGHT HIP REPLACEMENT, MITRAL VALVE REPAIR, PACEMAKER LEFT CHEST, BILATERAL CATARACT REMOVAL, BILATERAL ROTATOR CUFF REPAIRS Anesthesia Reactions: No Malignant Hyperthermia: No Significant Family History: No pertinent family hx ROS - Limitations ROS Limitations: Clinical Condition Altered Mental Physical Exam - General Appearance General Appearance: POSITIVE: No Evidence of Trauma, Obtunded - HEENT HEENT: POSITIVE: Head Inspection Nml, Eyes Inspection Nml, Ears Inspection Nml, Nose Inspection Nml, Oral/Dental Inspect. Nml, Pharynx Inspect. Nml, PERRL, EOMI - Pupil Size Pupil Size: 4 mm: Bilateral - Neuro/Psych Neurological: POSITIVE: Confusion, Weakness Cranial Nerves: POSITIVE: Other (Cranial nerves are unable to be tested because the patient's minimal responsiveness) Cerebellar: POSITIVE: Other (Unable to evaluate secondary to the patient's minimal responsiveness) Peripheral Exam: POSITIVE: Weakness - Neck Neck: POSITIVE: Supple, Non Tender - Respiratory Respiratory: POSITIVE: No Respiratory Distress, Breath Sounds Normal - Cardiovascular CVS: POSITIVE: Regular Rate and Rhythm, Heart Sounds Normal Peripheral Pulses: Radial (R): 2+ - Abdomen Abdomen: Soft: (All Quadrants), Normal Bowel Sounds: (All Quadrants), No Splenomegaly: (All Quadrants), No Hepatomegaly: (All Quadrants), No Rebound: ( All Quadrants), No Palpable Pulse: (All Quadrants), No [place] Mass: (All Quadrants), No Distention: (All Quadrants), No Rigidity: (All Quadrants), Tenderness Noted: (All Quadrants), Guarding: (All Quadrants) Additional Abdominal Details: Patient is tender throughout her abdomen but maximal tenderness is in the bilateral lower quadrants and suprapubic region. There is involuntary guarding present. - Skin Skin: POSITIVE: Normal for Race, No Rash, Warm, Dry - Extremities Extremity: Non-Tender: (All Extremities), Normal ROM: (All Extremities), Normal Inspection: (All Extremities), Pelvis Stable: (All Extremities) Altered Mental Status - Results Reviewed By Me Xrays/CTs/US Reviewed: Yes Discussed with Radiologist: Yes Lab Results Reviewed by Me: Yes CBC and BMP: 02/10/18 16:50 02/10/18 16:50 Lab Results:: Laboratory Results 3 02/10/18 02/10/18 02/10/18 16:29 16:50 16:50 WBC 16.40 H RBC 4.99 Hgb 14.9 Hct 46.0 MCV 92.2 MCH 29.9 MCHC 32.4 L RDW Std Deviation 55.1 H RDW Coeff of Lissa 16.7 H Plt Count 127 L MPV 10.1 Immature Gran % (Auto) 0.4 Neut % (Auto) 82.9 H Lymph % (Auto) 8.7 L [place] % (Auto) 7.4 Eos % (Auto) 0.4 Baso % (Auto) 0.2 Immature Gran # (Auto) 0.07 Neut # (Auto) 13.60 Lymph # (Auto) 1.42 [place] # (Auto) 1.22 H Eos # (Auto) 0.06 Baso # (Auto) 0.03 WBC Morphology Comment Normal morphology Plt Morphology Comment Normal morphology RBC Morph Comment Normal morphology VBG pH VBG pCO2 VBG HCO3 VBG Base Excess Sodium 141 Potassium 3.9 Chloride 99 Carbon Dioxide 32 Anion Gap 10 BUN 42 H Creatinine 1.4 H Estimated GFR Returns Processor BUN/Creatinine Ratio 30.00 H Glucose 124 H Calculated Osmolality 303.0 H Lactic Acid Calcium 9.0 Magnesium 1.9 Total Bilirubin 1.0 AST 45 H ALT 47 Alkaline Phosphatase 135 H CK-MB (CK-2) Troponin I Handheld C-Reactive Protein 15.2 H NT-Pro-B Natriuret Pep Total Protein 6.3 Albumin 3.6 Globulin 2.7 Albumin/Globulin Ratio 1.30 TSH Ur Collection Type Clean catch urine Urine Color Yellow Urine Clarity Clear Urine pH 7.0 Ur Specific [place] 1.010 Urine Protein Negative Urine Glucose (UA) Negative Urine Ketones Negative Urine Occult Blood Trace-intact H Urine Nitrate Negative Urine Bilirubin Negative Urine Urobilinogen 0.2 Ur Leukocyte Esterase Negative Urine RBC 3-5 Urine WBC None Ur Squamous Epith Cells Rare Ur Renal Epithelial Cell None Urine Crystals None Urine Bacteria None Urine Casts None Urine Mucus None Urine Trichomonas None Urine Yeast None Ur Culture Indicated? Culture not set 3 02/10/18 02/10/18 02/10/18 16:50 16:50 16:50 WBC RBC Hgb Hct MCV MCH MCHC RDW Std Deviation RDW Coeff of Lissa Plt Count MPV Immature Gran % (Auto) Neut % (Auto) Lymph % (Auto) [place] % (Auto) Eos % (Auto) Baso % (Auto) Immature Gran # (Auto) Neut # (Auto) Lymph # (Auto) [place] # (Auto) Eos # (Auto) Baso # (Auto) WBC Morphology Comment Plt Morphology Comment RBC Morph Comment VBG pH VBG pCO2 VBG HCO3 VBG Base Excess Sodium Potassium Chloride Carbon Dioxide Anion Gap BUN Creatinine Estimated GFR BUN/Creatinine Ratio Glucose Calculated Osmolality Lactic Acid 1.5 Calcium Magnesium Total Bilirubin AST ALT Alkaline Phosphatase CK-MB (CK-2) 1.34 Troponin I Handheld 0.060 H C-Reactive Protein NT-Pro-B Natriuret Pep Total Protein Albumin Globulin Albumin/Globulin Ratio TSH 3.39 Ur Collection Type Urine Color Urine Clarity Urine pH Ur Specific [place] Urine Protein Urine Glucose (UA) Urine Ketones Urine Occult Blood Urine Nitrate Urine Bilirubin Urine Urobilinogen Ur Leukocyte Esterase Urine RBC Urine WBC Ur Squamous Epith Cells Ur Renal Epithelial Cell Urine Crystals Urine Bacteria Urine Casts Urine Mucus Urine Trichomonas Urine Yeast Ur Culture Indicated? 3 02/10/18 02/10/18 16:50 17:24 WBC RBC Hgb Hct MCV MCH MCHC RDW Std Deviation RDW Coeff of Lissa Plt Count MPV Immature Gran % (Auto) Neut % (Auto) Lymph % (Auto) [place] % (Auto) Eos % (Auto) Baso % (Auto) Immature Gran # (Auto) Neut # (Auto) Lymph # (Auto) [place] # (Auto) Eos # (Auto) Baso # (Auto) WBC Morphology Comment Plt Morphology Comment RBC Morph Comment VBG pH 7.56 H VBG pCO2 36 L VBG HCO3 32 H VBG Base Excess 10 H Sodium Potassium Chloride Carbon Dioxide Anion Gap BUN Creatinine Estimated GFR BUN/Creatinine Ratio Glucose Calculated Osmolality Lactic Acid Calcium Magnesium Total Bilirubin AST ALT Alkaline Phosphatase CK-MB (CK-2) Troponin I Handheld C-Reactive Protein NT-Pro-B Natriuret Pep 4930 H Total Protein Albumin Globulin Albumin/Globulin Ratio TSH Ur Collection Type Urine Color Urine Clarity Urine pH Ur Specific [place] Urine Protein Urine Glucose (UA) Urine Ketones Urine Occult Blood Urine Nitrate Urine Bilirubin Urine Urobilinogen Ur Leukocyte Esterase Urine RBC Urine WBC Ur Squamous Epith Cells Ur Renal Epithelial Cell Urine Crystals Urine Bacteria Urine Casts Urine Mucus Urine Trichomonas Urine Yeast Ur Culture Indicated? EKG Interpreted/Reviewed By Me:: Yes ( paced rhythm 80 beats a minute) EKG Interpretation:: POSITIVE: Abnormal EKG - Patient's Progress Pain Medication Addressed: POSITIVE: Yes Re-Examine Time:: 18:36 Status: POSITIVE: Improved MDM / ED Course: Patient was evaluated, an IV started and blood was drawn and sent to the lab for studies CT examination of her head chest abdomen and pelvis were obtained as well as EKG. Findings: EKG, per my interpretation, shows a paced rhythm at [address] scan of her head shows no acute enter cranial abnormalities. CT scan of her chest shows a right lower lobe pneumonia. CT scan of her abdomen shows impaction of stool in the rectum with no acute intra-abdominal abnormalities noted. CBC shows white count of 16.4. CMP shows creatinine 1.4. Troponin is 0.060. CRP is 15.2. BNP is 4930. Urinalysis is negative. Assessment: #1 pneumonia with probable early sepsis. #2 congestive heart failure. #3 acute renal failure. #4 elevated troponin likely related to #3. Plan: Blood cultures are pending, patient received IV Rocephin and azithromycin. She is being admitted by the hospitalist in serious condition. Antibiotics Given: Yes - Consult Consult (If Yes, Name of Consulting MD & Time Called): Yes (Dr. Cerna 1830hrs) Consulting MD will see pt:: POSITIVE: [facility] [place] Admit Counseled: POSITIVE: Patient, Family, RE: Lab Results, RE: Radiology Results, RE : DX - CAP/CVA/Syncope CAP: POSITIVE: Antibiotics, Blood Cultures, Chest X-ray, Chest CT CVA/Syncope: POSITIVE: EKG Patient Care Time - Estimated PCT Patient Care Time (In Minutes): 60 Vital Signs - Recent Vital Signs Vital Signs: Vital Signs (Last 8 hours) Temp Pulse Resp BP Pulse Ox 02/10/18 16:09 98.8 F 80 24 166/76 87 - VS Reviewed Vital Signs Reviewed: Yes Discharge Clinical Impression: Pneumonia, Sepsis, Nausea and vomiting Discharge Disposition: Admit to Inpatient Condition: Fair Follow Up With: ANA WRIGHT [Primary Care Provider] - Date Decision to Admit to Inpatient: 02/10/18 Time Decision to Admit to Inpatient: 18:28
[2018-02-10] MEDS ORDERED: ONDANSETRON 4 MG/2 ML VIAL IVP ONE (16:29)
[2018-02-10] MEDS ORDERED: Sodium Chloride 0.9% 1,000 ML PRIMARY IV ONE (16:29)
[2018-02-10] MEDS ORDERED: MORPHINE SULFATE 2 MG/1 ML IVP ONE (16:29)
--- NOTE | 2018-02-10 16:33 | EKG ---
[address] [place] [address] Measurements Intervals [place] Rate: 80 P: 221 VT: 182 QRS: -84 QRSD: 131 T: 87 QT: 390 QTc: 425 Interpretive Statements ELECTRONIC ATRIAL PACEMAKER, POSSIBLE LOSS OF ATRIAL CAPTURE ELECTRONIC VENTRICULAR PACEMAKER ABNORMAL RHYTHM ECG Compared to ECG 12/14/2017 20:40:03 Ventricular premature complex(es) no longer present Right bundle-branch block no longer present Left posterior fascicular block no longer present T-wave abnormality no longer present Possible ischemia no longer present Electronically Signed On 02-14-18 16:40:17 MDT by Robert Hogan [id number]
[2018-02-10] MEDS ORDERED: LIDOCAINE HCL 2 % 10 ML JELLY URO-JECT TOPICAL PRN (16:59)
[2018-02-10 17:24] LABS: BASOPHILS # (AUTO) 0.03 10*3/UL; BASOPHILS % (AUTO) 0.2 % (0-1); EOSINOPHILS # (AUTO) 0.06 10*3/UL; EOSINOPHILS % (AUTO) 0.4 % (0-8); Hemoglobin [HGB] 14.9 g/dL (12.0-16.0); LYMPHOCYTES # (AUTO) 1.42 10*3/uL; MEAN CORPUSCULAR HEMOGLOBIN 29.9 PG (27-31); MEAN CORPUSCULAR HGB CONC 32.4 g/dL (33-37); MEAN CORPUSCULAR VOLUME 92.2 FL (81-99); MEAN PLATELET VOLUME 10.1 FL (7.4-12.2); MONOCYTES # (AUTO) 1.22 10*3/UL (0.3-0.8); MONOCYTES % (AUTO) 7.4 % (5-15); NEUTROPHILS % (AUTO) 82.9 % (50-80); PLATELET MORPHOLOGY COMMENT NORMAL MORPHOLOGY (NORM); RBC MORPHOLOGY COMMENT NORMAL MORPHOLOGY (NORM); RED BLOOD COUNT 4.99 10^6/uL (4.20-5.40); WBC MORPHOLOGY COMMENT NORMAL MORPHOLOGY (NORM)
[2018-02-10 17:27] LABS: BLOOD UREA NITROGEN 42 mg/dL (7-22); SERUM ALBUMIN 3.6 g/dL (3.5-4.8)
[2018-02-10 17:33] LABS: VENOUS PH 7.56 (7.32-7.42)
[2018-02-10 17:33] LABS: BILIRUBIN,URINE NEGATIVE (NEG); CLARITY,URINE CLEAR (CLEAR); COLOR,URINE YELLOW (Y); GLUCOSE, URINE (UA) NEGATIVE (NEG); OCCULT BLOOD,URINE Trace-intact (NEG); PROTEIN,URINE NEGATIVE (NEG); UROBILINOGEN,URINE 0.2 EU/dL (0.2)
[2018-02-10 17:39] LABS: SQUAMOUS EPITHELIAL CELL,UR RARE; URINE SAMPLE TYPE CLEAN CATCH URINE
--- NOTE | 2018-02-10 17:45 | DI ---
AP CHEST X-RAY, 02/10/2018 4:29 PM : Clinical History: Fever. Previous Exam: 12/14/2017. There is no acute soft tissue or bony abnormality. The patient is status post right shoulder surgery. There is a dual-chamber pacemaker and the leads are in the appropriate position. A metallic baffle i s placed in the left atrial appendage. There is cardiomegaly without CHF. A right lower lobe pneumoni a is present with a small right pleural effusion. There are no pulmonary nodules. Readin. Right lower lobe pneumonia with a small right pleural effusion. 2. Cardiomegaly without CHF. There is a metallic baffle placed in the left atrial appendage.
--- NOTE | 2018-02-10 18:13 | DI ---
CT HEAD SCAN WITHOUT IV CONTRAST, 02/10/2018 4:29 PM : Clinical History: Effusion. Previous Exam: 07/24/2017. Scans are obtained from the foramen magnum to the vertex without IV contrast. The fourth ventricle is of normal size, shape, position and contour. The third and lateral ventricles are mildly dilated but are otherwise normal and appropriate for the patient's age. There is no acute hemorrhagic or bland infarct. There are multiple punctate periventricular white matter lucencies abimael aterally that extend into the watershed territory, consistent with small vessel ischemic disease. Thi s amount of ischemic disease is appropriate for the patient's age. There is moderately severe to vicky re cerebellar and moderate cerebral atrophy. There are no extracerebral mantles or shift of the midli ne structures. Bone window evaluation is normal. The paranasal sinuses are normal. READIN. There is no acute hemorrhagic or bland infarct. 2. Small vessel ischemic disease. 3. Moderately severe to severe cerebellar and moderate cerebral atrophy. 4. There has been no significant interval change.
--- NOTE | 2018-02-10 18:23 | DI ---
CT CHEST SCAN WITHOUT IV CONTRAST, 02/10/2018 4:29 PM : Clinical History: Fever. Vomiting. The patient has renal insufficiency. Previous Exam: None at this facility. Scans are performed from the base of the neck to the lower lung bases without IV contrast. Sagittal a nd coronal images using non MIPS and MIPS technique are generated. The base of the neck and thoracic inlet are normal. There are no abnormal axillary, supraclavicular, mediastinal, or hilar nodes. There is cardiomegaly with four-chamber enlargement and a metallic baffl e in the left atrial appendage. A dual-chamber pacemaker is present and the leads are in the appropri ate position. There are faint calcifications in the proximal third of the LAD. There is pulmonary art erial hypertension. A right lower lobe pneumonia is present with early right middle lobe pneumonia. N o pleural effusions are noted. READIN. Right lower lobe pneumonia with early right middle lobe pneumonia. 2. Cardiomegaly with four-chamber enlargement. There is a baffle in the left atrial appendage. 3. Pulmonary arterial hypertension.
[2018-02-10] MEDS ORDERED: cefTRIAXone Inj 2 GM in Sodium Chloride 0.9% 100 ML IV ONE (18:29)
--- NOTE | 2018-02-10 18:32 | DI ---
CT ABDOMEN SCAN WITHOUT IV CONTRAST, 02/10/2018 4:29 PM : Clinical History: Abdominal pain. Nausea and vomiting. Fever. The patient has renal insufficiency. Previous Exam: None at this facility. Scans are performed from the lower lung bases through the liver and kidneys without IV contrast. Sagi ttal and coronal reformatted images are generated. No oral or rectal contrast was ordered. There is a right lower lobe pneumonia. The liver is normal. The gallbladder is grossly normal. Both a drenal glands and the spleen are normal. The pancreas is atrophic but normal. Both kidneys are small and the right and left kidneys measure 66 and 81 mm, respectively. There is no hydronephrosis or hydr oureter. No renal or ureteral calculi are present. There are no abnormal retrocrural or periaortic no junaid. No ascites is present. READIN. Both kidneys are small but otherwise are unremarkable. There is no obstructive uropathy. 2. The remainder of the scans of the abdomen is normal. 3. Right lower lobe pneumonia. CT PELVIS SCAN WITHOUT IV CONTRAST, 02/10/2018 4:29 PM : Clinical History: See above. Previous Exam: None. Scans are performed from the inferior margin of the liver and kidneys to the symphysis pubis without IV contrast. Scans through the lower abdomen and pelvis show no masses or abnormal fluid collections. There is no adenopathy. The appendix is not visualized but there is no inflammatory mass either in the cecal tip or in the right lower quadrant. The small bowel, terminal ileum, and ileocecal valve are normal. The colon is is normal but there may be a fecal impaction. There are no hernias. The uterus and both ovar ies are markedly atrophic but normal. READING: Normal CT pelvis scan without IV contrast. There may be a fecal impaction.
--- NOTE | 2018-02-10 20:24 | HOSP.PSI ---
Pneumonia Severity Index - PSI Age: 87 Sex: Female Shelter Resident: Yes History of Neoplastic Disease: No History of Liver Disease: No History of Congestive Heart Failure: No History of Cerebrovascular Disease: Yes History of Renal Disease: No (admission, starting levaquin due to allergies, medical admission) Altered Mental Status: Yes Respiratory Rate Greater Than 30: No Systolic Blood Pressure Less Than 90 mmHg: No Temperature Less Than 95F or Greater Than 103.8F: No Pulse Greater Than 124 bpm: No pH Less Than 7.35: No BUN Greater Than 29: Yes Sodium Less Than 130: No Glucose Greater Than 249: No Hematocrit Less Than 30%: No Partial Pressure of Oxygen Less Than 60 mmHg: No Pleural Effusion on Xray: No Total PSI Score: 139 PSI Risk: High Risk (>131) = Consider ICU vs Medical Inpatient Admission
[2018-02-10] MEDS ORDERED: Levofloxacin (Premix) 750 MG/150 ML PIGGYBACK IV ONE (21:00)
[2018-02-10] MEDS ORDERED: VITAMIN E PO SCH (21:01)
[2018-02-10] MEDS ORDERED: Mirtazapine Tab 15 MG TAB PO SCH (21:01)
[2018-02-10] MEDS ORDERED: LUTEIN PO SCH (21:01)
[2018-02-10] MEDS ORDERED: ZINC PO SCH (21:01)
[2018-02-10] MEDS ORDERED: ASCORBIC ACID PO SCH (21:01)
[2018-02-10] MEDS ORDERED: FATTY ACIDS PO SCH (21:01)
[2018-02-10] MEDS ORDERED: ONDANSETRON 4 MG/2 ML VIAL IVP PRN (21:01)
[2018-02-10] MEDS ORDERED: ZEAXANTHIN PO SCH (21:01)
[2018-02-10] MEDS ORDERED: Levofloxacin (Premix) 750 MG/150 ML PIGGYBACK IV SCH ×2 (21:01→22:00)
[2018-02-10] MEDS ORDERED: COPPER PO SCH (21:01)
[2018-02-10] MEDS ORDERED: Fleet Enema w/Mineral Oil 133ml RECTAL ONE (21:01)
[2018-02-10] MEDS ORDERED: LIDOCAINE W/ SODIUM BICARB 0.5 ML SYR SUBD PRN (21:01)
[2018-02-10] MEDS ORDERED: oxyCODONE-ACETAMINOPHEN 5-325 TAB PO PRN (21:01)
[2018-02-10] MEDS ORDERED: FISH OIL PO SCH (21:01)
[2018-02-10] MEDS ORDERED: OMEGA PO SCH (21:01)
[2018-02-10] MEDS ORDERED: [UNRECOGNIZED DRUG - REMARK] OP SCH (21:01)
[2018-02-10] MEDS ORDERED: LACTULOSE 20 GM PACKET PO ONE (21:01)
--- NOTE | 2018-02-10 22:02 | PDOC ---
HPI - History of Present Illness Date of Service: 02/10/18 Time of Service: 21:54 Chief Complaint: Altered mental status History of Present Illness: This is a very pleasant but ill and debilitated 87-year-old female with atrial fibrillation, congestive heart failure, history of stroke, macular degeneration , multiple problems with skin grafts and hematomas, and failure to thrive along with 10 pound weight loss over the last 6 months who presents with her daughter , son-in-law, and recreational sports directorchanel hutton. The complaint is that the patient developed altered mental status and [facility]respons[facility] at the [facility]. She was sent in for evaluation and found to have a right lower lobe pneumonia. 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 The patient, as described by her daughter and son-in-law , has had a significant decline in terms of her mental status, with increasing confusion daily, worsening sleep, decreasing appetite and by mouth intake, increasing pain and more discomfort. The patient is made a lot more statements of "I wish I could just sleep forever". She's been making more statements that she is getting ready to . She's been afraid of whether or not this would cause her pain. I spent a lot of time talking to the patient, her recreational sports director, the patient's daughter, her son-in-law, regarding this pneumonia and the severity of this pneumonia. Given her altered mental status, age, it is a class V pneumonia based on pneumonia severity index. Her mortality rate would be very high. She does not have a lot of physical reserve and has several allergies to penicillins and cephalosporins. We spoke to the patient and she would like to try antibiotics initially, but made it clear to all of us that she does not want to suffer and does not want to be left in pain. She is requesting that we treat her primary symptoms of pain and discomfort should she not respond to antibiotics for this pneumonia. She is DO NOT RESUSCITATE. In terms of the course of the pneumonia, apparently she had an altered mental status state 2 weeks ago noticed by her recreational sports directorAlessandra, but she seemed to recover from that. At that time she was noted to have a cough. Her fatigue has increased significantly. Her physical stamina has decreased. She did not have any fevers or chills but her cough has been present and nonproductive. She reportedly had nausea and vomiting as well. Past Medical History Medical History: 1. Polymyalgia rheumatica. 2. Atrial fibrillation. 3. History of hematomas. 4. Hypertension. 5. Congestive heart failure, systolic. 6. Failure to thrive. 7. 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 8. History of stroke Surgical History: 1. Multiple skin grafts related to hematomas. 2. Watchman procedure with atrial appendage device. 3. Pacemaker placement Pertinent Family History: Mother and father both passed on in their 90s related to heart disease and stroke issues Past Social History: Does not smoke or drink. used to Live with her daughter and son-in-law here in [place], [place] but is at [facility] now. Had 3 children. She is . Tobacco Use: Unknown If Ever Smoked In the Past 12 Months, Have Used or Abuse Any of the Following Substance: None Alcohol Use: None Medication / Allergies Home Medications: Home Medications 3 Medication Instructions Recorded Confirmed Type Aspirin [Aspir 81] 81 mg PO DAILY tab 12/10/16 02/10/18 History Ranitidine HCl [Zantac] 2 tab PO QHS #60 tab 12/10/16 01/10/17 History Mirtazapine 1 tab PO QHS #30 tab 12/16/16 01/10/17 [facility] [place] Fatty Acids/Fish Oil 1 cap PO BID #60 cap 12/16/16 02/10/18 Rx [[place] 3 1,000 mg Softgel] metoprolol tartrate 25 mg tablet 12.5 mg PO BID #30 tab 05/05/17 02/10/18 Rx Acetaminophen [Tylenol] 650 mg PO Q6H PRN tab 06/29/17 02/10/18 Rx gabapentin 100 mg capsule 100 mg PO BID cap 07/05/17 02/10/18 History Mirtazapine [Remeron] 7.5 mg PO BEDTIME tab 07/26/17 02/10/18 Rx cholecalciferol (vitamin D3) 1,000 1,000 unit PO QDAY tab 08/09/17 02/10/18 History unit tablet oxycodone-acetaminophen 5 mg-325 1 tab PO Q4H PRN tab 08/09/17 02/10/18 History mg tablet fluticasone 50 mcg/actuation nasal 1 spray INASL QD #1 g 09/13/17 02/10/18 History spray,suspension food supplement, lactose-reduced 4 ea PO TID ml 09/13/17 02/10/18 History 0.04 gram-1.05 kcal/mL oral liquid dextran 70-hypromellose (PF) 0.1 1 drp OP BID ea 09/30/17 02/10/18 History %-0.3 % eye drops in a dropperette prednisone 5 mg tablet 15 mg PO DAILY tab 09/30/17 02/10/18 History Famotidine [Pepcid] 20 mg PO BID 12/14/17 02/10/18 History Vit C/E/Zn/Coppr/Lutein/Zeaxan 1 mg PO BID 12/14/17 02/10/18 History [Preservision Areds 2 Softgel] furosemide 20 mg tablet 20 mg PO BID tab 12/31/17 02/10/18 History naloxegol 12.5 mg tablet 12.5 mg PO QAM #30 tab 01/06/18 02/10/18 Rx Allergies/Adverse Reactions: Allergies 3 Allergy/AdvReac Type Severity Reaction Status Date / Time cephalexin [From Keflex] Allergy Intermediate ITCHING Verified 02/10/18 17:22 clindamycin Allergy Intermediate diarrhea Verified 02/10/18 17:22 and vomiting Penicillins Allergy Mild rash Verified 02/10/18 17:22 Sulfa (Sulfonamide Allergy Mild rash Verified 02/10/18 17:22 Antibiotics) alendronate sodium Allergy NOT Verified 02/10/18 17:22 APPLICABLE bupropion Allergy NOT Verified 02/10/18 17:22 APPLICABLE fentanyl Allergy NOT Verified 02/10/18 17:22 APPLICABLE gemfibrozil Allergy NOT Verified 02/10/18 17:22 APPLICABLE loratadine Allergy NOT Verified 02/10/18 17:22 APPLICABLE methocarbamol Allergy NOT Verified 02/10/18 17:22 APPLICABLE sertraline Allergy NOT Verified 02/10/18 17:22 APPLICABLE simvastatin Allergy NOT Verified 02/10/18 17:22 APPLICABLE Review of Systems - Review of Systems All Systems: Reviewed & No Additional Complaints Except as Stated (I could not obtain an adequate review systems from the patient due to her dehydration, clinical state, and severe pneumonia. The review systems was obtained in combination from the patient's Mortgage Loan Specialist, and her daughter and son-in-law present at bedside.) - Constitutional Constitutional: REPORTS: General Health Poor, Weight Loss, Fatigue, Diffuse Arthralgias (Related to polymyalgia rheumatica), Weakness - Respiratory Respiratory: REPORTS: Cough (For upwards of 2 weeks) - Cardiovascular Cardiovascular: REPORTS: Negative System Review - Gastrointestinal Gastrointestinal / Abdominal: REPORTS: Constipation (Severe and unrelenting. Apparently had hemorrhoidal issues because she was digging to remove stool impactions) - Genitourinary Genitourinary: REPORTS: Other (History of prior urinary tract infections and difficult urinary catheter placement in the emergency room. 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) - Musculoskeletal Musculoskeletal: REPORTS: Joint Swelling (Diffuse from polymyalgia rheumatica) - Psychiatric Psychiatric: REPORTS: Depressed Exam - Vitals Vital Signs: Vital Signs Temperature 98.8 F Temperature Source Temporal Artery Scan Pulse Rate [Pulse Oximeter 80 Right] Respiratory Rate 24 Blood Pressure [Left Arm] 166/76 Pulse Ox 87 Oxygen Delivery Method Room Air Height 5 ft 2 in Weight 102 lb 8 oz - General General Appearance: No Acute Distress, Cooperative, Thin - Head Head Exam: Normal Inspection, Normocephalic, Atraumatic - Eye Eye Exam: POSITIVE: No Scleral Icterus - ENT ENT Exam: POSITIVE: Mucous Membranes Dry - Neck Neck Exam: No Tenderness, No Lymphadenopathy, No Thyromegaly, JVP is Raised - Respiratory Respiratory Exam: POSITIVE: Breathing Non Labored, Rhonci (Anteriorly on the left side), Crackles (Right lower base) - Cardiovascular Cardiovascular Exam: POSITIVE: RRR, No Clicks, No Gallops, No Rubs, Systolic Murmur, JVD - GI/Abdominal GI/Abdominal Exam: POSITIVE: Normal Bowel Sounds, Non Distended, Soft Additional GI/Abdominal Exam Details: Tender to palpation in the lower quadrants in particular - Rectal Rectal Exam: POSITIVE: Deferred - Extremities Extremities Exam: POSITIVE: No Clubbing Present, No Cyanosis Present Additional Extremities Exam Details: Patient is been described as having weeping edema particularly in the left lower extremity, at this time no edema but she does have unna boot wraps. - Neurological Neurological Exam: POSITIVE: Alert, No Facial Droop, Speech Intact / Clear, Moves All Extremities Equally - Integumentary Additional Integumentary Exam Details: Several skin tears, extremely frail and fragile skin. Bruises noted in upper extremities. Results - Labs CBC and BMP: 02/10/18 16:50 02/10/18 16:50 Additional Lab Results: Laboratory Results 02/10/18 02/10/18 02/10/18 Range/Units 16:29 16:50 16:50 WBC 16.40 H (4.8-10.8) 10^3/uL RBC 4.99 (4.20-5.40) 10^6/uL Hgb 14.9 (12.0-16.0) g/dL Hct 46.0 (37.0-47.0) % MCV 92.2 (81-99) FL MCH 29.9 (27-31) PG MCHC 32.4 L (33-37) g/dL RDW Std Deviation 55.1 H (39-50) fL RDW Coeff of Lissa 16.7 H (11.5-14.5) % Plt Count 127 L (140-350) 10*3/uL MPV 10.1 (7.4-12.2) FL Immature Gran % (Auto) 0.4 (0-5) % Neut % (Auto) 82.9 H (50-80) % Lymph % (Auto) 8.7 L (10-50) % [place] % (Auto) 7.4 (5-15) % Eos % (Auto) 0.4 (0-8) % Baso % (Auto) 0.2 (0-1) % Immature Gran # (Auto) 0.07 10*3/UL Neut # (Auto) 13.60 10*3/UL Lymph # (Auto) 1.42 10*3/uL [place] # (Auto) 1.22 H (0.3-0.8) 10*3/UL Eos # (Auto) 0.06 10*3/UL Baso # (Auto) 0.03 10*3/UL WBC Morphology Comment Normal morphology (NORM) Plt Morphology Comment Normal morphology (NORM) RBC Morph Comment Normal morphology (NORM) VBG pH (7.32-7.42) VBG pCO2 (45-55) mmHg VBG HCO3 (22-26) mmol/L VBG Base Excess (-2-2) MMOL/L Sodium 141 (135-145) meq/L Potassium 3.9 (3.8-5.2) meq/L Chloride 99 (98-112) meq/L Carbon Dioxide 32 (23-33) meq/L Anion Gap 10 (5-20) BUN 42 H (7-22) mg/dL Creatinine 1.4 H (0.50-1.20) mg/dL Estimated GFR [place] BUN/Creatinine Ratio 30.00 H (6-20) Glucose 124 H (78-110) mg/dL Calculated Osmolality 303.0 H (267-292) mOsm/kg Lactic Acid (0.70-2.10) MMOL/L Calcium 9.0 (8.7-10.7) mg/dL Magnesium 1.9 (1.6-2.4) mg/dL Total Bilirubin 1.0 (0.3-1.2) mg/dL AST 45 H (8-39) IU/L ALT 47 (9-52) IU/L Alkaline Phosphatase 135 H (38-126) IU/L CK-MB (CK-2) (0.00-5.00) NG/ML Troponin I Handheld (< 0.040) ng/mL C-Reactive Protein 15.2 H (0.0-0.9) mg/dL NT-Pro-B Natriuret Pep (0-450) PG/ML Total Protein 6.3 (6.1-8.0) g/dL Albumin 3.6 (3.5-4.8) g/dL Globulin 2.7 (2.50-4.10) g/dL Albumin/Globulin Ratio 1.30 (1.3-2.0) mg/g TSH (0.2700-4.2000) uIU/mL Ur Collection Type Clean catch urine Urine Color Yellow (Y) Urine Clarity Clear (CLEAR) Urine pH 7.0 (5.0-8.5) Ur Specific [place] 1.010 (1.005-1.030) Urine Protein Negative (NEG) mg/dl Urine Glucose (UA) Negative (NEG) mg/dL Urine Ketones Negative (NEG) Urine Occult Blood Trace-intact H (NEG) Urine Nitrate Negative (NEG) Urine Bilirubin Negative (NEG) Urine Urobilinogen 0.2 (0.2) EU/dL Ur Leukocyte Esterase Negative (NEG) Urine RBC 3-5 (NONE) /hpf Urine WBC None (NONE) Ur Squamous Epith Cells Rare (NONE) Ur Renal Epithelial Cell None (NONE) Urine Crystals None Urine Bacteria None (NONE) Urine Casts None (NONE) Urine Mucus None (NONE) Urine Trichomonas None (NONE) Urine Yeast None (NONE) Ur Culture Indicated? Culture not set 02/10/18 02/10/18 02/10/18 Range/Units 16:50 16:50 16:50 WBC (4.8-10.8) 10^3/uL RBC (4.20-5.40) 10^6/uL Hgb (12.0-16.0) g/dL Hct (37.0-47.0) % MCV (81-99) FL MCH (27-31) PG MCHC (33-37) g/dL RDW Std Deviation (39-50) fL RDW Coeff of Lissa (11.5-14.5) % Plt Count (140-350) 10*3/uL MPV (7.4-12.2) FL Immature Gran % (Auto) (0-5) % Neut % (Auto) (50-80) % Lymph % (Auto) (10-50) % [place] % (Auto) (5-15) % Eos % (Auto) (0-8) % Baso % (Auto) (0-1) % Immature Gran # (Auto) 10*3/UL Neut # (Auto) 10*3/UL Lymph # (Auto) 10*3/uL [place] # (Auto) (0.3-0.8) 10*3/UL Eos # (Auto) 10*3/UL Baso # (Auto) 10*3/UL WBC Morphology Comment (NORM) Plt Morphology Comment (NORM) RBC Morph Comment (NORM) VBG pH (7.32-7.42) VBG pCO2 (45-55) mmHg VBG HCO3 (22-26) mmol/L VBG Base Excess (-2-2) MMOL/L Sodium (135-145) meq/L Potassium (3.8-5.2) meq/L Chloride (98-112) meq/L Carbon Dioxide (23-33) meq/L Anion Gap (5-20) BUN (7-22) mg/dL Creatinine (0.50-1.20) mg/dL Estimated GFR BUN/Creatinine Ratio (6-20) Glucose (78-110) mg/dL Calculated Osmolality (267-292) mOsm/kg Lactic Acid 1.5 (0.70-2.10) MMOL/L Calcium (8.7-10.7) mg/dL Magnesium (1.6-2.4) mg/dL Total Bilirubin (0.3-1.2) mg/dL AST (8-39) IU/L ALT (9-52) IU/L Alkaline Phosphatase (38-126) IU/L CK-MB (CK-2) 1.34 (0.00-5.00) NG/ML Troponin I Handheld 0.060 H (< 0.040) ng/mL C-Reactive Protein (0.0-0.9) mg/dL NT-Pro-B Natriuret Pep (0-450) PG/ML Total Protein (6.1-8.0) g/dL Albumin (3.5-4.8) g/dL Globulin (2.50-4.10) g/dL Albumin/Globulin Ratio (1.3-2.0) mg/g TSH 3.39 (0.2700-4.2000) uIU/mL Ur Collection Type Urine Color (Y) Urine Clarity (CLEAR) Urine pH (5.0-8.5) Ur Specific [place] (1.005-1.030) Urine Protein (NEG) mg/dl Urine Glucose (UA) (NEG) mg/dL Urine Ketones (NEG) Urine Occult Blood (NEG) Urine Nitrate (NEG) Urine Bilirubin (NEG) Urine Urobilinogen (0.2) EU/dL Ur Leukocyte Esterase (NEG) Urine RBC (NONE) /hpf Urine WBC (NONE) Ur Squamous Epith Cells (NONE) Ur Renal Epithelial Cell (NONE) Urine Crystals Urine Bacteria (NONE) Urine Casts (NONE) Urine Mucus (NONE) Urine Trichomonas (NONE) Urine Yeast (NONE) Ur Culture Indicated? 02/10/18 02/10/18 Range/Units 16:50 17:24 WBC (4.8-10.8) 10^3/uL RBC (4.20-5.40) 10^6/uL Hgb (12.0-16.0) g/dL Hct (37.0-47.0) % MCV (81-99) FL MCH (27-31) PG MCHC (33-37) g/dL RDW Std Deviation (39-50) fL RDW Coeff of Lissa (11.5-14.5) % Plt Count (140-350) 10*3/uL MPV (7.4-12.2) FL Immature Gran % (Auto) (0-5) % Neut % (Auto) (50-80) % Lymph % (Auto) (10-50) % [place] % (Auto) (5-15) % Eos % (Auto) (0-8) % Baso % (Auto) (0-1) % Immature Gran # (Auto) 10*3/UL Neut # (Auto) 10*3/UL Lymph # (Auto) 10*3/uL [place] # (Auto) (0.3-0.8) 10*3/UL Eos # (Auto) 10*3/UL Baso # (Auto) 10*3/UL WBC Morphology Comment (NORM) Plt Morphology Comment (NORM) RBC Morph Comment (NORM) VBG pH 7.56 H (7.32-7.42) VBG pCO2 36 L (45-55) mmHg VBG HCO3 32 H (22-26) mmol/L VBG Base Excess 10 H (-2-2) MMOL/L Sodium (135-145) meq/L Potassium (3.8-5.2) meq/L Chloride (98-112) meq/L Carbon Dioxide (23-33) meq/L Anion Gap (5-20) BUN (7-22) mg/dL Creatinine (0.50-1.20) mg/dL Estimated GFR BUN/Creatinine Ratio (6-20) Glucose (78-110) mg/dL Calculated Osmolality (267-292) mOsm/kg Lactic Acid (0.70-2.10) MMOL/L Calcium (8.7-10.7) mg/dL Magnesium (1.6-2.4) mg/dL Total Bilirubin (0.3-1.2) mg/dL AST (8-39) IU/L ALT (9-52) IU/L Alkaline Phosphatase (38-126) IU/L CK-MB (CK-2) (0.00-5.00) NG/ML Troponin I Handheld (< 0.040) ng/mL C-Reactive Protein (0.0-0.9) mg/dL NT-Pro-B Natriuret Pep 4930 H (0-450) PG/ML Total Protein (6.1-8.0) g/dL Albumin (3.5-4.8) g/dL Globulin (2.50-4.10) g/dL Albumin/Globulin Ratio (1.3-2.0) mg/g TSH (0.2700-4.2000) uIU/mL Ur Collection Type Urine Color (Y) Urine Clarity (CLEAR) Urine pH (5.0-8.5) Ur Specific [place] (1.005-1.030) Urine Protein (NEG) mg/dl Urine Glucose (UA) (NEG) mg/dL Urine Ketones (NEG) Urine Occult Blood (NEG) Urine Nitrate (NEG) Urine Bilirubin (NEG) Urine Urobilinogen (0.2) EU/dL Ur Leukocyte Esterase (NEG) Urine RBC (NONE) /hpf Urine WBC (NONE) Ur Squamous Epith Cells (NONE) Ur Renal Epithelial Cell (NONE) Urine Crystals Urine Bacteria (NONE) Urine Casts (NONE) Urine Mucus (NONE) Urine Trichomonas (NONE) Urine Yeast (NONE) Ur Culture Indicated? - EKG Data -: EKG Interpreted by Me - EKG Data EKG Interpretation: Other (Paced rhythm) - Imaging Status: Image Reviewed by Me (Head CT scan negative for acute bleed. Chest x- ray on my view has a right-sided pneumonia. Chest CT scan shows right lower and right middle lobe pneumonia. Could possibly be consistent with aspiration. Abdominal/pelvis CT scan shows significant constipation and) Assessment and Plan - Patient Problems (1) Pneumonia Current Visit: Yes Status: Acute Code(s): J18.9 - Pneumonia, unspecified organism Qualifiers: Pneumonia type: aspiration pneumonia Aspiration pneumonia type: due to vomit Laterality: right Lung location: lower lobe of lung Qualified Code(s ): J69.0 - Pneumonitis due to inhalation of food and vomit (2) Confusion Current Visit: Yes Status: Resolved Code(s): R41.0 - Disorientation, unspecified (3) Constipation due to pain medication therapy Current Visit: Yes Status: Acute Code(s): K59.03 - Drug induced constipation (4) Pacemaker Current Visit: Yes Status: Chronic Onset Date: ~2014 Code(s): Z95.0 - Presence of cardiac pacemaker (5) Macular degeneration of right eye Current Visit: Yes Status: Chronic Qualifiers: Macular degeneration type: unspecified type Qualified Code(s): H35.30 - Unspecified macular degeneration (6) PMR (polymyalgia rheumatica) Current Visit: Yes Status: Chronic Onset Date: 01/21/17 Code(s): M35.3 - Polymyalgia rheumatica (7) Gastroesophageal reflux disease without esophagitis Current Visit: No Status: Chronic Onset Date: 01/21/17 Code(s): K21.9 - Gastro-esophageal reflux disease without esophagitis (8) CKD (chronic kidney disease) stage 4, GFR 15-29 ml/min Current Visit: Yes Status: Chronic Onset Date: 01/21/17 Code(s): N18.4 - Chronic kidney disease, stage 4 (severe) (9) Atrial fibrillation Current Visit: Yes Status: Chronic Code(s): I48.91 - Unspecified atrial fibrillation Qualifiers: Atrial fibrillation type: chronic Qualified Code(s): I48.2 - Chronic atrial fibrillation (10) Congestive heart failure Current Visit: Yes Status: Acute Comment: This looks to be consistent with acute systolic heart failure. I do not have the ability to get an echocardiogram. I do not think it will make a difference in the patient's outcome based on the severity of her clinical condition. Code(s): I50.9 - Heart failure, unspecified Qualifiers: Heart failure type: end stage Qualified Code(s): I50.84 - End stage heart failure - Assessment / Plan Additional Assessment/Plan Details: Admit patient. Antibiotics will be given IV Levaquin due to cephalosporin allergy. I did discuss with the patient's daughter that Levaquin in this age range can be associated with confusion and neurotoxicity. However, given allergies, I don't think we have a lot of other options here. (Antibodies will be renally dosed) I will write for some breathing therapies including nebulized therapies if necessary. Oxygen as necessary to keep saturations greater than 91%. Respiratory therapy to evaluate. Vitamin C by mouth. We'll check a urinary antigen for strep pneumoniae. At this time, vaccines are not indicated. PSI score is 139 . Class 5 pneumonia CURB-65 is 3, [facility] a 14% 30 day mortality Patient does not smoke Repeat labs in a.m. CODE STATUS discussed, DO NOT RESUSITATE Blood cultures are pending. Telemetry monitoring for now. Given the complex nature of this patient's clinical issues, severe debility, low body mass index, decreasing quality of life, increased pain, we discussed the nature of our plan initially. For now, we think that we would like to try to give antibiotics at chance to see if the patient will clinically improve. If there is no improvement over the next 24 hours or so, the patient has corrected us to treat primary symptoms of pain and discomfort. She is aware that she could regardless of therapy and regardless of aggressiveness of therapy. In particular, she has an external jugular vein peripheral IV access. I asked her if she would like a central line for access but she refused that. If we do need to treat primary symptoms of pain and discomfort, we can use a bucchal absorption strategy for pain control. Prognosis is extremely guarded and I think that is likely regardless of aggressiveness of therapy. Patient's family members at bedside and the patient's present understood this discussion and agreed with the plan.
[2018-02-10] MEDS: HEPARIN 5000 UNIT/1 ML SUBCUT SCH (22:19)
[2018-02-10] MEDS: D5-1/2NS + 20mEq KCL 1,000 ML PRIMARY IV SCH (22:19)
[2018-02-10] MEDS: LACTULOSE 20 GM PACKET PO SCH (23:10)
[2018-02-10] MEDS: Metoprolol TARTRATE Tab 25 MG TAB PO SCH (23:15)
[2018-02-10] MEDS: GABAPENTIN 100 MG CAPSULE PO SCH (23:15)
[2018-02-11 05:48] LABS: BASOPHILS # (AUTO) 0.01 10*3/UL; BASOPHILS % (AUTO) 0.1 % (0-1); EOSINOPHILS # (AUTO) 0.09 10*3/UL; EOSINOPHILS % (AUTO) 0.7 % (0-8); Hematocrit [HCT] 40.7 % (37.0-47.0); Hemoglobin [HGB] 12.7 g/dL (12.0-16.0); LYMPHOCYTES # (AUTO) 0.92 10*3/uL; MEAN CORPUSCULAR HEMOGLOBIN 29.3 PG (27-31); MEAN CORPUSCULAR HGB CONC 31.2 g/dL (33-37); MEAN CORPUSCULAR VOLUME 93.8 FL (81-99); MEAN PLATELET VOLUME 10.8 FL (7.4-12.2); MONOCYTES % (AUTO) 7.3 % (5-15); NEUTROPHILS # (AUTO) 10.37 10*3/UL; RED BLOOD COUNT 4.34 10^6/uL (4.20-5.40)
[2018-02-11 06:07] LABS: BLOOD UREA NITROGEN 35 mg/dL (7-22); BUN/CREATININE RATIO 26.92 (6-20)
[2018-02-11] MEDS: ALBUTEROL SULFATE 2.5 MG/3 ML NEB PRN ×2 (06:31→10:49)
[2018-02-11 06:32] LABS: PLATELET MORPHOLOGY COMMENT NORMAL MORPHOLOGY (NORM); RBC MORPHOLOGY COMMENT NORMAL MORPHOLOGY (NORM); WBC MORPHOLOGY COMMENT NORMAL MORPHOLOGY (NORM)
[2018-02-11] MEDS ORDERED: predniSONE 5 MG TABLET PO SCH (09:00)
[2018-02-11] MEDS ORDERED: ASCORBIC ACID Chewable 500 MG TABLET PO SCH (09:00)
[2018-02-11] MEDS: HEPARIN 5000 UNIT/1 ML SUBCUT SCH (09:00)
[2018-02-11] MEDS ORDERED: ASPIRIN EC 81 MG TABLET PO SCH (09:00)
[2018-02-11] MEDS ORDERED: Beta Carot W/Vit E,C,Min Tab 1 TAB TAB PO SCH (09:00)
[2018-02-11] MEDS ORDERED: PANTOPRAZOLE IV 40 MG VIAL IVP SCH (09:00)
[2018-02-11] MEDS ORDERED: CHOLECALCIFEROL 1000 IU TABLET PO SCH (09:00)
[2018-02-11] MEDS ORDERED: Hypromellose/Glycerin/PEG 400 Ophth Soln 15 ML DROPS EACH EYE SCH (09:00)
[2018-02-11] MEDS ORDERED: NALOXEGOL OXALATE 12.5 MG PO SCH (09:00)
[2018-02-11] MEDS: GABAPENTIN 100 MG CAPSULE PO SCH (09:01)
[2018-02-11] MEDS: Metoprolol TARTRATE Tab 25 MG TAB PO SCH (09:01)
[2018-02-11] MEDS: LACTULOSE 20 GM PACKET PO SCH (09:02)
[2018-02-11] MEDS ORDERED: MORPHINE SULFATE 2 MG/1 ML IVP ONE ×2 (11:38→13:36)
[2018-02-11] MEDS: D5-1/2NS + 20mEq KCL 1,000 ML PRIMARY IV SCH (12:40)
[2018-02-11 13:35] VITALS: O2SAT 95
[2018-02-11 13:45] VITALS: BP 124/53; TEMP 97.7
[2018-02-11] MEDS ORDERED: LIDOCAINE HCL/PF 1% (10 MG/1 ML) - 2 ML AMP ONE (15:02)
--- NOTE | 2018-02-11 15:37 | PDOC(PROG) ---
Date of Service: 02/11/18 Time of Service: 15:32 Interval History: Patient does not have any chest pain. She still continues to have cough and total body pain from her polymyalgia rheumatica which seems uncontrolled. This required morphine. We have not been able to maintain IV access very well with external jugular and her skin is just too frail to place a peripheral anywhere else. She agreed to a central line for access so that we could continue to give her IV fluids and pain medications. At this time, the patient states that she does not feel that she is going to get any better for pneumonia and really wants is to stop therapy and treat her symptoms of pain and primary discomfort. Her daughter and son-in-law were present for this discussion and they agree with the patient's plan. She does not want anything else in terms of medical therapy. Objective : Data - Labs CBC and BMP: 02/11/18 04:10 02/11/18 04:10 Additional Lab Results: 02/10/18 16:50 Lactic Acid 1.5 Objective : Exam - General General Appearance: No Acute Distress, Cooperative Additional General Exam Details: Vital Signs - Last Taken Temperature 97.7 F 02/11/18 13:00 Pulse Rate 64 02/11/18 13:00 Respiratory Rate 20 02/11/18 13:00 Blood Pressure 124/53 02/11/18 13:00 Pulse Ox 95 02/11/18 13:34 - Eye Eye Exam: No Scleral Icterus - ENT ENT Exam: Mucous Membranes Dry - Neck Neck Exam: JVP is Raised - Respiratory Respiratory Exam: Breathing Non Labored, Decreased Breath Sounds, Coarse Breath Sounds - Cardiovascular Cardiovascular Exam: No Clicks, No Gallops, No Rubs, Irregular Rhythm, Systolic Murmur, JVD - GI/Abdominal GI/Abdominal Exam: Normal Bowel Sounds, Non Tender, Non Distended, Soft - Extremities Extremities Exam: No Clubbing Present, No Edema Present, No Cyanosis Present - Neurological Neurological Exam: Alert, Oriented x 3 (Currently, the patient is much more oriented than she was yesterday and is able to participate in a discussion about her wishes regarding aggressive care versus end-of-life care.), No Facial Droop, Speech Intact / Clear, Moves All Extremities Equally - Integumentary Additional Integumentary Exam Details: Extremely frail and thin skin. Bruises everywhere. Assessment and Plan - Patient Problems (1) Pneumonia Current Visit: Yes Status: Acute Code(s): J18.9 - Pneumonia, unspecified organism Qualifiers: Pneumonia type: aspiration pneumonia Aspiration pneumonia type: due to vomit Laterality: right Lung location: lower lobe of lung Qualified Code(s ): J69.0 - Pneumonitis due to inhalation of food and vomit (2) Congestive heart failure Current Visit: Yes Status: Acute Code(s): I50.9 - Heart failure, unspecified Qualifiers: Heart failure type: end stage Qualified Code(s): I50.84 - End stage heart failure (3) Confusion Current Visit: Yes Status: Resolved Code(s): R41.0 - Disorientation, unspecified (4) Constipation due to pain medication therapy Current Visit: Yes Status: Acute Code(s): K59.03 - Drug induced constipation (5) Pacemaker Current Visit: Yes Status: Chronic Onset Date: Code(s): Z95.0 - Presence of cardiac pacemaker (6) Macular degeneration of right eye Current Visit: Yes Status: Chronic Qualifiers: Macular degeneration type: unspecified type Qualified Code(s): H35.30 - Unspecified macular degeneration (7) PMR (polymyalgia rheumatica) Current Visit: Yes Status: Chronic Onset Date: 01/21/17 Code(s): M35.3 - Polymyalgia rheumatica (8) Gastroesophageal reflux disease without esophagitis Current Visit: No Status: Chronic Onset Date: 01/21/17 Code(s): K21.9 - Gastro-esophageal reflux disease without esophagitis (9) CKD (chronic kidney disease) stage 4, GFR 15-29 ml/min Current Visit: Yes Status: Chronic Onset Date: 01/21/17 Code(s): N18.4 - Chronic kidney disease, stage 4 (severe) (10) Atrial fibrillation Current Visit: Yes Status: Chronic Code(s): I48.91 - Unspecified atrial fibrillation Qualifiers: Atrial fibrillation type: chronic Qualified Code(s): I48.2 - Chronic atrial fibrillation - Assessment / Plan Additional Assessment/Plan Details: Given the constellation of end-stage and complex medical issues such as congestive heart failure, polymyalgia rheumatica, and acute pneumonia, chronic pain syndrome, chronic kidney disease, stage IV, the patient remains extremely weak and is not really able to get out of bed due to this pneumonia. Has told everyone that she does not want any further therapy for pneumonia or for her chronic conditions as it'll not get better and she states to us that she wants treatment of primary symptoms of pain and discomfort only. The patient's daughter, her power of estate attorney, and her son-in-law, agree with the patient's plan. I cannot provide any therapy really without IV access and we only had an external jugular vein which was touching go in terms of maintaining it, so the patient did consent to central line placement so that we can continue to administer therapy for treatment of primary symptoms of pain and discomfort. would be expected in this patient's situation regardless of aggressive therapy or not.
--- NOTE | 2018-02-11 15:45 | PROCEDURE1 ---
Procedure - - Date and Time of Service: 02/11/2018, 1542 Procedure Performed: Central Line : Non Tunneled Procedure Note: Procedure performed: Left Internal jugular central venous catheter placement Indication for procedure: Poor IV access extremely poor skin condition with multiple skin tears and bruising, no ability to get peripheral IV access and need for IV access for administration of medications and fluids, with risks discussed as possible arterial puncture, pneumothorax, and localized pain. Benefits for medication administration, blood draws, hemodynamic monitoring, and management of clinical condition. Description of procedure: The patient was prepped in the usual fashion. Ultrasound guidance was used to identify the left internal jugular vein. The area was cleansed with chlorhexidine. Lidocaine was used for local anesthesia. Using an introducer needle attached to a 5 mL syringe, this was inserted and angled towards the ipsilateral nipple, with ultrasound guidance as well. There was a flash of venous, purple blood as the internal jugular vein was cannulated via the introducer needle. The blood was nonpulsatile. A guidewire was inserted through the needle into the internal jugular vein and the needle was removed over the wire. A 10 blade was then used to perform a small dermatotomy at the needle insertion site. The venous dilator was then placed over the guidewire using Seldinger technique, and then removed. 2 port central venous catheter was then placed over the guidewire inserted into the internal jugular vein and the guidewire was removed. All ports were flushed with normal saline. All ports had draw back. The catheter was sutured into place, and the skin was cleansed with chlorhexidine and the catheter was dressed. A postprocedure x-ray showed central venous catheter tip probably be in the brachiocephalic vein just proximal to the superior vena cava, no pneumothorax. I personally reviewed the chest X-ray. Complications: None present at time of procedure Disposition: Patient remains on the medical floor in serious condition with end-stage heart failure and acute pneumonia.
[2018-02-11] MEDS ORDERED: LORazepam 2 MG/1 ML VIAL IVP PRN (15:49)
[2018-02-11] MEDS ORDERED: Acetaminophen 1000mg Inj 1,000 MG/100 ML VIAL IV PRN (15:49)
--- NOTE | 2018-02-11 15:52 | DI ---
AP CHEST X-RAY, 02/11/2018 3:02 PM : Clinical History: Left IJ line placement, pneumonia Previous Exam: 02/10/2018. The left internal jugular catheter tip is in the distal half of the left brachiocephalic vein. There is cardiomegaly without CHF. A filter baffle is present in the left atrial appendage. There has been improvement of the right lower lobe pneumonia. However, there has been increase in the density behind the left heart and this either represents atelectasis or a developing left lower lobe pneumonia. The re are no pleural effusions. Readin. The left internal jugular catheter tip is located in the distal half of the left brachiocephalic vein. There is no pneumothorax. 2. The right lower lobe pneumonia has improved, but there may be either atelectasis or a developing pneumonia in the left lower lobe. 3. Cardiomegaly without CHF.
[2018-02-11] MEDS ORDERED: Sodium Chloride 0.9% 1,000 ML IV SCH (16:00)
[2018-02-11] MEDS ORDERED: Morphine Syringe 300mg/30ml 300 MG/30 ML PCA.SYRING IV SCH (16:00)
[2018-02-11 20:27] VITALS: RESP 16
--- NOTE | 2018-02-11 22:31 | DCSUMMARY ---
Hospitalization Summary Admit Date: 02/10/2018 Discharge Date: 02/11/18 Primary Diagnosis:: pneumonia Secondary Diagnosis:: end stage CHF, CKD, stage IV, polymyalgia rheumatica Hospital Course: This is an 87 year old female admitted from the senior living through the ER with pneumonia. The patient has failure to thrive, multiple medical problems, and the patient did not respond to antibiotic therapy for her pneumonia. She opted to have us treat her primary symptoms of pain and discomfort, knowing that she would regardless of route of therapy. The patient passed from this pneumonia on 02/11/2018. Exam - Vitals Vital Signs: Vital Signs Data Peritnent Studies: Laboratory Results 02/11/18 02/11/18 Range/Units 04:10 04:10 WBC 12.34 H (4.8-10.8) 10^3/uL RBC 4.34 (4.20-5.40) 10^6/uL Hgb 12.7 (12.0-16.0) g/dL Hct 40.7 (37.0-47.0) % MCV 93.8 (81-99) FL MCH 29.3 (27-31) PG MCHC 31.2 L (33-37) g/dL RDW Std Deviation 55.3 H (39-50) fL RDW Coeff of Lissa 16.7 H (11.5-14.5) % Plt Count 119 L (140-350) 10*3/uL MPV 10.8 (7.4-12.2) FL Immature Gran % (Auto) 0.4 (0-5) % Neut % (Auto) 84.0 H (50-80) % Lymph % (Auto) 7.5 L (10-50) % [place] % (Auto) 7.3 (5-15) % Eos % (Auto) 0.7 (0-8) % Baso % (Auto) 0.1 (0-1) % Immature Gran # (Auto) 0.05 10*3/UL Neut # (Auto) 10.37 10*3/UL Lymph # (Auto) 0.92 10*3/uL [place] # (Auto) 0.90 H (0.3-0.8) 10*3/UL Eos # (Auto) 0.09 10*3/UL Baso # (Auto) 0.01 10*3/UL WBC Morphology Comment Normal morphology (NORM) Plt Morphology Comment Normal morphology (NORM) RBC Morph Comment Normal morphology (NORM) Sodium 142 (135-145) meq/L Potassium 3.9 (3.8-5.2) meq/L Chloride 102 (98-112) meq/L Carbon Dioxide 33 (23-33) meq/L Anion Gap 7 (5-20) BUN 35 H (7-22) mg/dL Creatinine 1.3 H (0.50-1.20) mg/dL Estimated GFR [employer] BUN/Creatinine Ratio 26.92 H (6-20) Glucose 113 H (78-110) mg/dL Calculated Osmolality 302.0 H (267-292) mOsm/kg Calcium 7.9 L (8.7-10.7) mg/dL Patient Problems - Patient Problem List (1) Pneumonia Current Visit: Yes Status: Acute Code(s): J18.9 - Pneumonia, unspecified organism Qualifiers: Pneumonia type: aspiration pneumonia Aspiration pneumonia type: due to vomit Laterality: right Lung location: lower lobe of lung Qualified Code(s ): J69.0 - Pneumonitis due to inhalation of food and vomit Category: Medical (2) Congestive heart failure Current Visit: Yes Status: Acute Code(s): I50.9 - Heart failure, unspecified Qualifiers: Heart failure type: end stage Qualified Code(s): I50.84 - End stage heart failure Category: Medical (3) Confusion Current Visit: Yes Status: Resolved Code(s): R41.0 - Disorientation, unspecified Category: Medical (4) Constipation due to pain medication therapy Current Visit: Yes Status: Acute Comment: Will add movantic 12.5 mg daily and stop regular senna. Encouraged her to take the oxycodone AM and HS routinely to improve quality of life with ability to be more active and to sleep better. Code(s): K59.03 - Drug induced constipation Category: Medical (5) Pacemaker Current Visit: Yes Status: Chronic Onset Date: ~2014 Code(s): Z95.0 - Presence of cardiac pacemaker Category: Medical (6) Macular degeneration of right eye Current Visit: Yes Status: Chronic Qualifiers: Macular degeneration type: unspecified type Qualified Code(s): H35.30 - Unspecified macular degeneration Category: Medical (7) PMR (polymyalgia rheumatica) Current Visit: Yes Status: Chronic Onset Date: 01/21/17 Code(s): M35.3 - Polymyalgia rheumatica Category: Medical (8) Gastroesophageal reflux disease without esophagitis Current Visit: No Status: Chronic Onset Date: 01/21/17 Code(s): K21.9 - Gastro-esophageal reflux disease without esophagitis Category: Medical (9) CKD (chronic kidney disease) stage 4, GFR 15-29 ml/min Current Visit: Yes Status: Chronic Onset Date: 01/21/17 Comment: 2017 Cr 1.4 on furosemide 20 mg BID. Recheck BMP and if Cr increases will return to furosemide QD and monitor her edema very closely. Code(s): N18.4 - Chronic kidney disease, stage 4 (severe) Category: Medical (10) Atrial fibrillation Current Visit: Yes Status: Chronic Code(s): I48.91 - Unspecified atrial fibrillation Qualifiers: Atrial fibrillation type: chronic Qualified Code(s): I48.2 - Chronic atrial fibrillation Category: Medical (11) Fragile skin Current Visit: Yes Status: Acute Category: Medical
== END 2018-02-11 20:55 | disposition expired | DRG 293 ==
LOC: ER 16:06 → MED/SURG 20:16
PROVIDERS: ADMIT Family Medicine; ATTEND Family Medicine